=== PATIENT | female | born 1980 | race Caucasian/White ===

== ENCOUNTER 2016-12-06 11:45 | Inpatient (IN) | payer OTHER ==
[~2016-12-06] VITALS: Ht 157.5 cm; Wt 90.7 kg
[~2016-12-06 11:45] MED LIST: ATENOLOL50 M1 PO; AUGMENTIN 875-1 EACH PO; BENADRYL25 MG PO; GABAPENTIN400 M2 PO; HYDROCHLOROTHIA25 M1 PO; IBUPROFEN800 MG PO; KEFLEX500 M1 PO; NORVASC5 M1 PO; OMEPRAZOLE20 M2 PO; PERCOCET 5-3251 EACH PO; SIMVASTATIN20 M1 PO
--- NOTE | 2016-12-06 11:49 | NUR ---
PT STATES SHE IS HAVING LOWER GROIN AND BACK PAIN THAT HAS BEEN SHARP AND STABBING. PT REPORTS HAVING PAIN THAT SHOOTS UP HER BACK. PT STATES THE SKIN ON HER LEGS HAS FELT LIKE IT HAS BEEN ON FIRE AND WHEN SHE KNEELS DOWN IT FEELS LIKE HER SKIN CAN RIP APART. PT STATES SHE HAS BEEN VOMITING FOR THE PAST 5 DAYS AND HAS NOT BEEN ABLE TO KEEP ANYTHING DOWN.
--- NOTE | 2016-12-06 13:19 | ED GI/GU/ABDOMINAL COMPLAINT ---
History of Present Illness General Chief Complaint: Abdominal Pain/Flank Pain Stated Complaint: LOWER ABD PAIN Source: patient, old records Exam Limitations: no limitations Vital Signs & Intake/Output Vital Signs & Intake/Output Vital Signs Date Time Temp Pulse Resp B/P Pulse O2 O2 Flow FiO2 Ox Delivery Rate 12/06 1837 100/58 12/06 1741 98.6 96/58 12/06 1700 99.0 83 16 90/52 94 Room Air 12/06 1453 80 18 95/51 97 Room Air 12/06 1150 98.5 99 16 105/70 97 Room Air Allergies Coded Allergies: NO KNOWN ALLERGIES (01/15/16) Reconcile Medications Amlodipine (Norvasc 5MG Tab) 5 MG TAB 1 TAB PO DAILY HEART (Reported) Atenolol 50 MG TAB 1 TAB PO DAILY HEART (Reported) Gabapentin 400 MG CAP 3 CAP PO DAILY NEUROPATHY (Reported) Gabapentin 400 MG CAP 2 CAP PO AT BEDTIME NEUROPATHY (Reported) Hydrochlorothiazide (Hydrodiuril 25 MG Tab) 25 MG TAB 1 TAB PO DAILY WATER PILL (Reported) Omeprazole 20 MG ECC 1 CAP PO DAILY GI (Reported) Simvastatin 20 MG TAB 1 TAB PO DAILY CHOLESTEROL (Reported) Triage Note: PT STATES SHE IS HAVING LOWER GROIN AND BACK PAIN THAT HAS BEEN SHARP AND STABBING. PT REPORTS HAVING PAIN THAT SHOOTS UP HER BACK. PT STATES THE SKIN ON HER LEGS HAS FELT LIKE IT HAS BEEN ON FIRE AND WHEN SHE KNEELS DOWN IT FEELS LIKE HER SKIN CAN RIP APART. Triage Nurses Notes Reviewed? yes ? N Is pt currently ? No HPI: Patient presents with abdominal pain. Patient states that the pain first started in her bilateral lower quadrant a few weeks ago and has been steadily increasing. The pain is crampy in nature. There is no radiation. There are no aggravating or mitigating factors. For the past 2 days she has been having increasing pain in the right upper quadrant. The pain is sharp and stabbing in nature. The pain is steadily increasing to its current 10 out of 10. There is no radiation. Patient states that she has anorexia but does not notice any change in the pain after eating. There is nausea and she's had 1 episode of vomiting. There is no diarrhea. Patient denies any fevers or chills. Past History Travel History Traveled to [place] past 21 day No Medical History Any Pertinent Medical History? see below for history Neurological: NEUROPATHY -- BL LE EENT: MOLD/POLLEN ALLERGIES Cardiovascular: hypertension, hyperlipidemia Respiratory: NONE Gastrointestinal: GERD Hepatic: NONE Renal: NONE Musculoskeletal: NONE Psychiatric: NONE Endocrine: NONE Blood Disorders: NONE Cancer(s): NONE HUMAN RESOURCES BENEFITS ADMINISTRATOR/Reproductive: NONE History of MRSA: No History of VRE: No History of CDIFF: No Pneumonia Vaccine: 12/30/15 Tetanus Vaccine: 01/15/16 Surgical History Surgical History: none, N Psychosocial History Who do you live with Family Services at Home None What is your primary language Gabonese Tobacco Use: Current Daily Use Daily Tobacco Use Amount/Type: => 5 Cigarettes daily ETOH Use: occasional use Illicit Drug Use: denies illicit drug use Family History Family History, If Any: FATHER FH: heart disease MOTHER FH: diabetes mellitus FH: hyperlipidemia Hx Contributory? No Review of Systems Review of Systems Constitutional: Reports: no symptoms. EENTM: Reports: no symptoms. Respiratory: Reports: no symptoms. Cardiovascular: Reports: no symptoms. GI: Reports: see HPI, abdominal pain, diarrhea, nausea, vomiting. Genitourinary: Reports: no symptoms. Musculoskeletal: Reports: no symptoms. Skin: Reports: no symptoms. Neurological/Psychological: Reports: no symptoms. Hematologic/Endocrine: Reports: no symptoms. Immunologic/Allergic: Reports: no symptoms. All Other Systems: Reviewed and Negative Physical Exam Physical Exam General Appearance: well developed/nourished, alert, awake, moderate distress Head: atraumatic, normal appearance Eyes: Bilateral: PERRL, EOMI. Ears, Nose, Throat, Mouth: hearing grossly normal, moist mucous membrane Neck: normal inspection, supple, full range of motion Respiratory: normal breath sounds, chest non-tender, no respiratory distress, lungs clear Cardiovascular: regular rate/rhythm, normal peripheral pulses Gastrointestinal: normal bowel sounds, soft, HEPATOMEGALY AND RUQ TENDERNESS Back: normal inspection, normal range of motion Neurologic/Psych: no motor/sensory deficits, awake, alert, oriented x 3, normal mood/affect Skin: intact, normal color, warm/dry Core Measures ACS in differential dx? No Severe Sepsis Present: No Septic Shock Present: No Progress Differential Diagnosis: biliary colic, bowel obstruction, colon cancer, cholecystitis, diverticulitis, gastritis, hepatitis, hernia, ischemic bowel, inflamm bowel dis, peptic ulcer, PUD/GERD, SBO Plan of Care: Orders Procedure Date/time Status Regular Diet 12/07 B Active Saline Lock 12/07 1855 Active Misc Message 12/07 1855 Active ED Holding Orders 12/07 1855 Active Vital Signs 12/07 1855 Active Activity/Ambulation 12/07 1855 Active Code Status 12/07 1855 Active Admit to inpatient 12/06 185 Active PARTIAL THROMBOPLASTIN TIME 12/06 184 Active PROTHROMBIN TIME 12/06 1848 Active Add-on Test (ER Only) 12/06 1817 Active Add-on Test (ER Only) 12/06 1625 Active Add-on Test (ER Only) 12/06 1450 Active HEPATITIS PANEL 12/06 135 Active HUMAN BETA HCG SCREEN 12/06 135 Active ETHANOL 12/06 1356 Active LIPASE 12/06 1343 Active COMPREHENSIVE METABOLIC PANEL 12/06 1343 Active CBC WITHOUT DIFFERENTIAL 12/06 1343 Complete AMYLASE 12/06 1343 Active Current Medications Sig/Fátima Start time Last Medication Dose Stop Time Status Admin Sodium Chloride 1,000 ML .Q10H 12/06 1900 UNVr (Normal Saline 0.9%) Laboratory Tests 12/06/16 184: PT Pending, INR Pending, APTT Pending 12/06/16 1356: Anion Gap 11, Estimated GFR > 60, BUN/Creatinine Ratio 10.0, Glucose 115 H, Calcium 8.4, Total Bilirubin 2.6 H, AST 163 H, ALT 55 H, Alkaline Phosphatase 246 H, Total Protein 7.8, Albumin 3.0 L, Globulin 4.8 H, Albumin/Globulin Ratio 0.6 L, Amylase < 30 L, Lipase 119, Total Beta HCG NEGATIVE, CBC w Diff NO MAN DIFF REQ, RBC 4.69, MCV 101.1 H, MCH 34.3 H, RDW 12.4, MPV 9.3, Gran % 80.9 H, Lymphocytes % 13.5 L, Monocytes % 4.9, Eosinophils % 0.6, Basophils % 0.1, Absolute Granulocytes 9.7 H, Absolute Lymphocytes 1.6, Absolute Monocytes 0.6, Absolute Eosinophils 0.1, Absolute Basophils 0, PUBS MCHC 33.9, Hepatitis A IgM Ab Pending, Hep Bs Antigen Pending, Hep B Core IgM Ab Conf Pending, Hepatitis C Antibody Pending, Serum Alcohol < 10.0 Diagnostic Imaging: Viewed by Me: CT Scan, Ultrasound. Discussed w/RAD: CT Scan, Ultrasound. Radiology Impression: PATIENT: KRISTAL DERAS PRESENT AGE: 36 PATIENT ACCOUNT NO: [id number] : 78 LOCATION: [facility] ORDERING PHYSICIAN: PETEY FORD MD SERVICE DATE: 12/06/16 EXAM TYPE: CAT - CT ABD & PELVIS W IV CONTRAST EXAMINATION: CT ABDOMEN AND PELVIS WITH CONTRAST CLINICAL INFORMATION: Right lower quadrant pain. Evaluate for appendicitis. COMPARISON: CT abdomen and pelvis from 11/15/2010 TECHNIQUE: Multidetector volumetric imaging was performed of the abdomen and pelvis before and after the IV administration of 95 mL of Optiray 320 intravenous contrast. Sagittal and coronal reformatted images were obtained on the technologist's workstation. DLP: 886 mGy-cm FINDINGS: SENIOR ASSOCIATE: Compared to 11/15/2010, the patient has developed a larger, more obese body habitus LUNG BASES: Mild atelectasis in dependent aspect of each lower lobe. Also, there are a few scattered linear opacities of platelike atelectasis in each base. A trace amount of fluid is present in each pleural space. LIVER, GALLBLADDER, AND BILIARY TREE: There is a heterogeneous pattern of steatosis. The liver is enlarged with right hepatic lobe measuring 29 cm in length. If patient excessively uses alcohol, then this could represent severe alcohol-induced steatohepatitis. The portal and hepatic veins are patent. Gallbladder is physiologically distended and without evidence of radiopaque calculi. There is no intrahepatic or extrahepatic bile duct dilatation. PANCREAS: Unremarkable. SPLEEN: Unremarkable. ADRENAL GLANDS: Unremarkable. KIDNEYS AND URETERS: The kidneys are normal in size, shape, and attenuation. No hydronephrosis, hydroureter, or calculi seen. No perinephric stranding. BLADDER: Unremarkable. GASTROINTESTINAL TRACT: Stomach is unremarkable. Loops of bowel are normal in caliber. The appendix is normal. There is no evidence of acute inflammation or obstruction of the gastrointestinal tract. No pneumoperitoneum. Small amount of ascitic fluid is present within the abdomen and pelvis. ABDOMINAL WALL: There is mild edema within subcutaneous tissues of the abdominal wall, flanks and back. LYMPH NODES: There are mildly enlarged common hepatic/periportal lymph nodes, largest of these measuring 1.3 cm short axis dimension. These are likely reactive to the liver disease. Multiple lymph nodes are seen within the retroperitoneum, largest measuring 1 cm short axis dimension. Also, there are multiple mildly enlarged lymph nodes in the mesentery. VASCULAR: Abdominal aorta is normal in caliber and the celiac trunk, SMA, JACOB and renal arteries are widely patent. Inferior vena cava is unremarkable. PELVIC VISCERA: Contraceptive device is well-positioned within the endometrial cavity. The uterus and adnexa are unremarkable. OSSEOUS STRUCTURES: There are bilateral pars interarticularis defects of L5 with 0.4 cm grade 1 anterolisthesis of L5 on S1. No suspicious bone lesions. IMPRESSION: Hepatomegaly and severe, heterogeneous pattern of hepatic steatosis. Consider possibility of alcohol-induced steatohepatitis -- if in the right clinical context of excessive alcohol use history. Small volume of ascitic fluid is present in the abdomen and pelvis. The mild lymphadenopathy in the periportal region is likely reactive to liver disease. Multiple borderline enlarged lymph nodes are also seen within the mesentery and retroperitoneum. DICTATED BY: BAKARI AGUILERA MD DATE/TIME DICTATED:12/06/161554 DIRECTOR PROCESS IMPROVEMENT:MOLLY DATE/TIME TRANSCRIBED:12/06/161554 CONFIDENTIAL, DO NOT COPY WITHOUT APPROPRIATE AUTHORIZATION. <Electronically signed in Other Vendor System> SIGNED BY: BAKARI AGUILERA MD 12/06/16 1610, PATIENT: KRISTAL DERAS PRESENT AGE: 36 PATIENT ACCOUNT NO: [id number] : LOCATION: [facility] ORDERING PHYSICIAN: PETEY FORD MD SERVICE DATE: 12/06/16-1431 EXAM TYPE: US - US-LIMITED ABDOMEN EXAMINATION: US ABDOMEN LIMITED CLINICAL INFORMATION: Right upper quadrant pain. Increased LFTs. Rule out cholecystitis. COMPARISON: CT abdomen pelvis dated 12/06/2016 was reviewed. TECHNIQUE: Real-time imaging of the right upper quadrant abdominal viscera. FINDINGS: PANCREAS: The pancreas is obscured by gas and cannot be adequately evaluated. LIVER: The liver is enlarged. It demonstrates increased echogenicity. GALLBLADDER: The gallbladder is distended. There is mild gallbladder wall thickening, to 5 mm. During the examination the patient reported severe pain within the region of the gallbladder. COMMON BILE DUCT: Normal in caliber measuring 0.6 cm in diameter. RIGHT KIDNEY: The right kidney measures 10 cm in sagittal dimension. No gross hydronephrosis. FREE FLUID: There is perihepatic free fluid. IMPRESSION: This ultrasound examination is markedly limited secondary to patient's body habitus. The gallbladder is distended and there is minimal gallbladder wall thickening. Additionally, the patient reports severe pain within the region of the gallbladder. If there is a clinical concern for cholecystitis, nuclear medicine scan is recommended for further evaluation. The liver is markedly enlarged and heterogeneous in echotexture. DICTATED BY: SUPA VALDEZ MD DATE/TIME DICTATED:12/06/161639 DIRECTOR PROCESS IMPROVEMENT:MOLLY DATE/ TIME TRANSCRIBED:12/06/161639 CONFIDENTIAL, DO NOT COPY WITHOUT APPROPRIATE AUTHORIZATION. <Electronically signed in Other Vendor System> SIGNED BY: SUPA VALDEZ MD 12/06/16 0676 Initial ED EKG: none Comments: Patient has been seen by Dr. Downing from surgery. He is concerned with the way the liver looks on the CAT scan. Gastroenterology has been consulted and they will see her in the morning. Departure Departure Disposition: STILL A PATIENT Condition: Stable Clinical Impression Primary Impression: Hepatitis Secondary Impressions: Abdominal pain Qualifiers: Abdominal location: right upper quadrant Qualified Code: R10.11 - Right upper quadrant pain Referrals: TIFFANIE SUMNER,IONA (PCP/Family) Departure Forms: Customer Survey General Discharge Information Admission Note Spoke With: VERÓNICA AYOUB MD Documentation of Exam: Documentation of any treatments & extenuating circumstances including Concerns Regarding Discharge (functional status, medication knowledge or non-compliance, living conditions, etc.) that warrant an admission rather than observation: [IV fluids, IV pain control, follow CIWA scores, gastroenterology consultation] Critical Care Note Critical Care Note Critical Care Time: mins: (45 MIN)
--- NOTE | 2016-12-06 13:19 | NUR ---
PT TO DANIEL Tam MEDICAL STUDENT AT BEDSIDE TO REJI HERNANDEZ
--- NOTE | 2016-12-06 13:58 | NUR ---
PT LABS SENT
[2016-12-06 14:15] LABS: ABSOLUTE BASOPHIL COUNT 0 /CUMM (0.0-0.2); ABSOLUTE EOSINOPHIL COUNT 0.1 /CUMM (0.0-0.7); ABSOLUTE GRANULOCYTE CT 9.7 /CUMM (1.4-6.5); ABSOLUTE LYMPH COUNT 1.6 /CUMM (1.2-3.4); ABSOLUTE MONOCYTE COUNT 0.6 /CUMM (0.10-0.60); BASOPHIL % 0.1 % (0.0-2.0); EOSINOPHIL % 0.6 % (0-5); GRANULOCYTE % 80.9 % (42.2-75.2); HEMATOCRIT 47.5 % (37-47); MEAN CORPUSCULAR HGB 34.3 PG (27.0-31.0); MEAN CORPUSCULAR HGB CONC 33.9 G/DL (33.0-37.0); MEAN CORPUSCULAR VOLUME 101.1 FL (81.0-99.0); MEAN PLATELET VOLUME 9.3 FL (7.4-10.4); PLATELET COUNT 167 /CUMM (130-400); RBC DISTRIBUTION WIDTH 12.4 % (11.5-14.5); RED BLOOD CELL CT 4.69 /CUMM (4.20-5.40); WHITE BLOOD CELL COUNT 11.9 /CUMM (4.8-10.8)
--- NOTE | 2016-12-06 16:10 | CT SCAN REPORT ---
EXAMINATION: CT ABDOMEN AND PELVIS WITH CONTRAST CLINICAL INFORMATION: Right lower quadrant pain. Evaluate for appendicitis. COMPARISON: CT abdomen and pelvis from 11/15/2010 TECHNIQUE: Multidetector volumetric imaging was performed of the abdomen and pelvis before and after the IV administration of 95 mL of Optiray 320 intravenous contrast. Sagittal and coronal reformatted images were obtained on the technologist's workstation. DLP: 886 mGy-cm FINDINGS: HAY SORTER: Compared to 11/15/2010, the patient has developed a larger, more obese body habitus LUNG BASES: Mild atelectasis in dependent aspect of each lower lobe. Also, there are a few scattered linear opacities of platelike atelectasis in each base. A trace amount of fluid is present in each pleural space. LIVER, GALLBLADDER, AND BILIARY TREE: There is a heterogeneous pattern of steatosis. The liver is enlarged with right hepatic lobe measuring 29 cm in length. If patient excessively uses alcohol, then this could represent severe alcohol-induced steatohepatitis. The portal and hepatic veins are patent. Gallbladder is physiologically distended and without evidence of radiopaque calculi. There is no intrahepatic or extrahepatic bile duct dilatation. PANCREAS: Unremarkable. SPLEEN: Unremarkable. ADRENAL GLANDS: Unremarkable. KIDNEYS AND URETERS: The kidneys are normal in size, shape, and attenuation. No hydronephrosis, hydroureter, or calculi seen. No perinephric stranding. BLADDER: Unremarkable. GASTROINTESTINAL TRACT: Stomach is unremarkable. Loops of bowel are normal in caliber. The appendix is normal. There is no evidence of acute inflammation or obstruction of the gastrointestinal tract. No pneumoperitoneum. Small amount of ascitic fluid is present within the abdomen and pelvis. ABDOMINAL WALL: There is mild edema within subcutaneous tissues of the abdominal wall, flanks and back. LYMPH NODES: There are mildly enlarged common hepatic/periportal lymph nodes, largest of these measuring 1.3 cm short axis dimension. These are likely reactive to the liver disease. Multiple lymph nodes are seen within the retroperitoneum, largest measuring 1 cm short axis dimension. Also, there are multiple mildly enlarged lymph nodes in the mesentery. VASCULAR: Abdominal aorta is normal in caliber and the celiac trunk, SMA, JACOB and renal arteries are widely patent. Inferior vena cava is unremarkable. PELVIC VISCERA: Contraceptive device is well-positioned within the endometrial cavity. The uterus and adnexa are unremarkable. OSSEOUS STRUCTURES: There are bilateral pars interarticularis defects of L5 with 0.4 cm grade 1 anterolisthesis of L5 on S1. No suspicious bone lesions. IMPRESSION: Hepatomegaly and severe, heterogeneous pattern of hepatic steatosis. Consider possibility of alcohol-induced steatohepatitis -- if in the right clinical context of excessive alcohol use history. Small volume of ascitic fluid is present in the abdomen and pelvis. The mild lymphadenopathy in the periportal region is likely reactive to liver disease. Multiple borderline enlarged lymph nodes are also seen within the mesentery and retroperitoneum.
--- NOTE | 2016-12-06 16:51 | ULTRASOUND REPORT ---
EXAMINATION: US ABDOMEN LIMITED CLINICAL INFORMATION: Right upper quadrant pain. Increased LFTs. Rule out cholecystitis. COMPARISON: CT abdomen pelvis dated 12/06/2016 was reviewed. TECHNIQUE: Real-time imaging of the right upper quadrant abdominal viscera. FINDINGS: PANCREAS: The pancreas is obscured by gas and cannot be adequately evaluated. LIVER: The liver is enlarged. It demonstrates increased echogenicity. GALLBLADDER: The gallbladder is distended. There is mild gallbladder wall thickening, to 5 mm. During the examination the patient reported severe pain within the region of the gallbladder. COMMON BILE DUCT: Normal in caliber measuring 0.6 cm in diameter. RIGHT KIDNEY: The right kidney measures 10 cm in sagittal dimension. No gross hydronephrosis. FREE FLUID: There is perihepatic free fluid. IMPRESSION: This ultrasound examination is markedly limited secondary to patient's body habitus. The gallbladder is distended and there is minimal gallbladder wall thickening. Additionally, the patient reports severe pain within the region of the gallbladder. If there is a clinical concern for cholecystitis, nuclear medicine scan is recommended for further evaluation. The liver is markedly enlarged and heterogeneous in echotexture.
--- NOTE | 2016-12-06 18:37 | NUR ---
LAB REQUESTING A BLUE TOP
--- NOTE | 2016-12-06 18:49 | NUR ---
BLUE, ELIZONDO AND PURPLE TOP DRAWN AND SENT TO THE LAB BY THIS [facility]
[2016-12-06 19:11] LABS: PTT 37 SEC (25-37)
--- NOTE | 2016-12-06 20:01 | NUR ---
Emergency Dept UC Admit Note: To be admitted to [facility] by DR AYOUB with ABDOMINAL PAIN as the diagnosis, to [facility] location. Nursing Personal Care Service Provider and admitting notified 12/06/16 at 1906 PT WILL GO TO ROOM [id number]
--- NOTE | 2016-12-06 20:05 | History & Physical ---
JOAQUIN USMNER,NIKKI 12/06/16 2004: General Information and HPI History of Present Illness: Ms. Wallace is a 36-year-old lady with a PMH significant for HTN, HLD, neuropathy and GERD, last admitted for cellulitis from a dog bite in Dec [address] [facility], presents with 2 days of worsening RUQ pain associated with postprandial emesis and diarrhea. Patient reports the abdominal pain began 2 months ago but it has gotten significantly worse for the past 2 days. Also she has been unable to tolerate any food despite having a good appetite. Patient has been throwing up the food that she ate, both solid and liquid. In addition she has had diarrhea since her last admission for cellulitis with some color changes in the stool occassionally. For the past 2 days she has had diarrhea with yellow /greenish stools. Denies any pain/difficulty with swallowing. She did not take any medications for pain. Currently her abdominal pain is about 8 out of 10, constant, sharp, located predominantly in the RUQ radiating to the RLQ. She also endorses some pain in the bilateral lower quadrants but it is stable and under control. Patient had some chills at home but denies any fever, headache, dizziness, chest pain, palpitations, shortness of breath. She identifies herself as an occassional social drinker (1 glass of wine every 1 -2 weeks in average). She is a current smoker (20+ years, about 2 cigarretts a day). Denies any illicit drug use. PCP - Dr. Polanco Full code. Allergies/Medications Allergies: Coded Allergies: NO KNOWN ALLERGIES (01/15/16) Home Med list Amlodipine (Norvasc 5MG Tab) 5 MG TAB 1 TAB PO DAILY HEART (Reported) Atenolol 50 MG TAB 1 TAB PO DAILY HEART (Reported) Gabapentin 400 MG CAP 3 CAP PO DAILY NEUROPATHY (Reported) Gabapentin 400 MG CAP 2 CAP PO AT BEDTIME NEUROPATHY (Reported) Hydrochlorothiazide (Hydrodiuril 25 MG Tab) 25 MG TAB 1 TAB PO DAILY WATER PILL (Reported) Omeprazole 20 MG ECC 1 CAP PO DAILY GI (Reported) Simvastatin 20 MG TAB 1 TAB PO DAILY CHOLESTEROL (Reported) Past History Travel History Traveled to [place] past 21 day No Medical History Neurological: NEUROPATHY -- BL LE EENT: MOLD/POLLEN ALLERGIES Cardiovascular: hypertension, hyperlipidemia Respiratory: NONE Gastrointestinal: GERD Hepatic: NONE Renal: NONE Musculoskeletal: NONE Psychiatric: NONE Endocrine: NONE Blood Disorders: NONE Cancer(s): NONE CURTAIN DRIER/Reproductive: NONE History of MRSA: No History of VRE: No History of CDIFF: No Pneumonia Vaccine: 12/30/15 Tetanus Vaccine: 01/15/16 Surgical History Surgical History: none, N Past Family/Social History Family History Relations & Conditions if any FATHER FH: heart disease MOTHER FH: diabetes mellitus FH: hyperlipidemia Psychosocial History Services at Home: None ETOH Use: occasional use Illicit Drug Use: denies illicit drug use Review of Systems Review of Systems Constitutional: Reports: see HPI. Exam & Diagnostic Data Last 24 Hrs of Vital Signs/I&O Vital Signs Date Time Temp Pulse Resp B/P Pulse O2 O2 Flow FiO2 Ox Delivery Rate 12/06 2053 98.2 96 20 108/78 95 Room Air 12/06 2025 98.5 90 16 114/73 97 Room Air 12/06 1837 100/58 12/06 1741 98.6 96/58 12/06 1700 99.0 83 16 90/52 94 Room Air 12/06 1453 80 18 95/51 97 Room Air 12/06 1150 98.5 99 16 105/70 97 Room Air Intake & Output 12/06 1600 12/06 0800 12/06 0000 Intake Total 1000 Output Total Balance 1000 Intake, IV 1000 Patient 90.718 kg Weight Physical Exam General Appearance Alert, Oriented X3, Cooperative, No Acute Distress Skin No Rashes, No Breakdown, No Significant Lesion HEENT Atraumatic, PERRLA, EOMI, Mucous Membr. moist/pink Neck Supple, No JVD, +2 Carotid Pulse wo Bruit, No LAD Cardiovascular Regular Rate, Normal S1, Normal S2, No Murmurs, Gallops, Rubs Lungs Clear to Auscultation, Normal Air Movement Abdomen Soft, Hypoactive BS, TTP in RUQ and RLQ Neurological Normal Gait, Normal Speech, Strength at 5/5 X4 Ext, Normal Tone, Sensation Intact, Cranial Nerves 3-12 NL Extremities No Clubbing, No Cyanosis, No Edema, Normal Pulses, No Tenderness/ Swelling Vascular Normal Pulses, Pulses Symmetrical Last 24 Hrs of Labs/Venancio: Laboratory Tests 12/06/16 1848: PT 19.0 H, INR 1.82 H, APTT 37 12/06/16 1356: Anion Gap 11, Estimated GFR > 60, BUN/Creatinine Ratio 10.0, Glucose 115 H, Calcium 8.4, Total Bilirubin 2.6 H, Direct Bilirubin 1.5 H, AST 163 H, ALT 55 H, Alkaline Phosphatase 246 H, Total Protein 7.8, Albumin 3.0 L, Globulin 4.8 H, Albumin/Globulin Ratio 0.6 L, Amylase < 30 L, Lipase 119, Vitamin B12 Pending, TSH Pending, Total Beta HCG NEGATIVE, CBC w Diff NO MAN DIFF REQ, RBC 4.69, MCV 101.1 H, MCH 34.3 H, RDW 12.4, MPV 9.3, Gran % 80.9 H, Lymphocytes % 13.5 L, Monocytes % 4.9, Eosinophils % 0.6, Basophils % 0.1, Absolute Granulocytes 9.7 H, Absolute Lymphocytes 1.6, Absolute Monocytes 0.6, Absolute Eosinophils 0.1, Absolute Basophils 0, PUBS MCHC 33.9, Hepatitis A IgM Ab Pending, Hep Bs Antigen Pending, Hep B Core IgM Ab Conf Pending, Hepatitis C Antibody Pending, Salicylates Pending, Acetaminophen Pending, Serum Alcohol < 10.0 Assessment/Plan Assessment: Ms. Wallace is a 36-year-old lady with a PMH significant for HTN, HLD, neuropathy and GERD, last admitted for cellulitis from a dog bite in Dec [address] [facility], presents with 2 days of worsening RUQ pain associated with postprandial emesis and diarrhea, concerning for biliary disease. # RUQ pain with transaminitis Her abdominal pain in the setting of elevated LFTs with total bili is likely due to a biliary disease, most likely choledocholithiasis vs. cholecytitis with a component of possible alcoholic steatohepatitis. Patient has no signs of SIRS however. Ultrasound shows enlarged liver, distended gallbladder with minimal gallbladder wall thickening. Additionally, the patient reports severe pain within the region of the gallbladder. * Admit to general medicine service * Check hepaitits panel, TFTs * Follow Utox screening with aspirin/Tylenol level * Recheck LFTs in the morning * GI consulted, follow recs * Surgery consulted, follow recs - recommended no surgical intervention at the moment * Consider steroid (Maddrey's risk is 39 points) * IV hydration * Adequate pain control * Avoid hepatotoxins # Hypokalemia K on admisison is low at 3.0. * Replete and recheck BEP tomorrow morning # HTN * Resume Norvasc, HCTZ and atenolol at home doses # HLD * Resume statin at home dose # GERD * Resume omeprazole # Diet - full liquid # Moderate pain pathway # DVTppx - Lovenox # Full code. As Ranked By This Provider Problem List: 1. Hyperlipidemia 2. Abdominal pain Qualifiers Abdominal location: right upper quadrant Qualified Code: R10.11 - Right upper quadrant pain 3. Hepatitis Core Measures/Miscellaneous Acute Coronary Syndrome ACS Diagnosis: No Cerebrovascular Accident CVA/TIA Diagnosis: No Congestive Heart Failure CHF Diagnosis: No Venous Thromboembolism VTE Risk Factors: Age > 40 No [facility] VTE prophylaxis d/t: No contraindications No VTE Pharm Prophylaxis d/t: No contraindications VTE Diagnosis: No VTE Type: NONE VTE Confirmed by (Test): NONE Severe Sepsis Severe Sepsis Present: No Septic Shock Septic Shock Present: No Miscellaneous Documentation Attending Case Discussed With: [facility] Primary Care Physician: TIFFANIE SUMNER,[facility] Patient sees these Specialists PCP Level of Patient Care: General Medicine [facility] 12/06/16 2103: Attending MD Review Statement Attending Statement Attending MD Statement: examined this patient, discuss w/resident/PA/CLIENT CARE MANAGER, agreed w/resident/PA/CLIENT CARE MANAGER Attending Assessment/Plan: 36 yo morbidly obese F smoker, with h/o HTN, HLD, GERD, neuropathy, is here for evaluation of abdominal pain b/l lower quadrant crampy painthat started 2 months ago, but for the past 1 week she now has noticed right upper quadrant stabbing pain associated with nausea, vomiting, chills and early satiety. Since her last discharge in January 2016 when she was treated with antibiotics for dog bite cellulitis, patient reports having chronic diarrhea off and on (almost every day, very few formed stools), [id number] stools, occasional blood, never been worked up for the same, no colonoscopy or EGD. Denies dysphagia, odynophagia or heartburn. Reports erythematous skin changes to bilateral lower extremity anterior aspect of shins but not tender. Two days ago, she had severe burning pain in her left lower extremity that resolved on its own ?etiology. No travel or sick contacts. She has smoked 'pod' as a teenager but nothing as of now. She was a binge drinker in her teenage years (16 yrs) for about 6 8 months, but after that she reports only occasional alcohol use (once every 2 weeks few glasses of wine). Denies IV drug abuse or previous blood transfusions. She has been vaccinated for Hep B. 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 For the past 2 weeks, she has been taking Ibuprofen (3 tabs of 200 mg ~ 600 mg) almost everyday for her headache. She denies Tylenol use. No other new meds. Family history: Brother has ?liver issues (diagnosed 10-12 yrs ago), but patient not sure about this. Home meds include amlodipine, atenolol, HCTZ, simvastatin, gabapentin and prilosec. Vitals: Tmax 99, HR 90's, BP 105/70 --> 90/52 --> 114/73 --> 102/62, sats 95% RA. Exam: AAO, no lymphadenopathy, no icterus or pallor, dry mucous membranes, no stigmata of cirrhosis or liver failure. Neck supple, Chest b/l clear, Heart S1S2 regular, Abd soft, distended, RUQ tenderness, hepatomegaly (about 3 fingers below rib cage), no splenomegaly, Neuro grossly intact. LE: B/l anterior tovar nontender erythematous patches, trace ankle edema. Peripheral pulses well felt. Labs: WBC 11.9, H/H 16.1/47.5, macrocytosis, INR 1.82, PT 19, K 3.0, bicarb 32, glucose 115, Ca 8.4, T. Bili 2.6, D. Bili 1.5, AST 163, ALT 55, Alk phos 246, Albumin 3.0, globulin 4.8, amylase/lipase neg. Salicylate/ tylenol levels neg. Alcohol < 10. CT abd/pelvis: hepatomegaly, severe heterogeneous pattern of steatohepatitis. Small volume of ascites, mild lymphadenopathy likely reactive. Multiple borderline enlarged LN within mesentery and RP. Abd USG: GB distended, minimal GB wall thickening, liver enlarged with increased echogenecity. 1. Acute liver injury with abnormal synthetic function, with a cholestatic pattern. AST:ALT > 2:1, however patient denies excessive alcohol use, ?alcoholic hepatitis. TORRES and drug induced (ibuprofen) induced liver injury is a possibility. No signs of sepsis, afebrile and no leukocytosis. She was hypotensive in the setting of chronic diarrhea, but her LFTs are not markedly elevated to suggest shock liver/ ischemic hepatitis. Acute viral hepatitis again numbers are not too bad. The constellation of chronic diarrhea, with elevated liver enzymes of cholestatic pattern and erythematous skin changes makes me think of inflammatory bowel disease with an extraintestinal manifestation ?PSC. Lastly, her GB appears distended with mininmal GB wall thickening cholecystitis. CT did not reveal any intra-or extra-hepatic biliary dilatation or cholelithiasis seems less likely. Malignancy seems less likely. GM admit, check urine tox screen, GGT, vit D, LDH, HIV, hepatitis panel, TSH, free T4, lipid panel, CPK. Check AM cortisol level to rule out adrenal insufficiency. Consider IAIN, anti-smooth muscle Ab, IgG to assess for autoimmune hepatitis. Continue IV fluids, anti-emetics and supportive care. Clear liquid diet. Pain management with dilaudid and tramadol. Avoid NSAIDS or hepatotoxic drugs. Hold statin. GI consult in AM. Surgery evaluated patient in ER (did not leave a note), but they do not think that it is a primary biliary/GB issue. Consider MRCP and ?HIDA scan to assess for cholecystitis. 2. Hypokalemia, metabolic alkalosis in the setting of vomiting. Replete electrolytes, IV hydration, monitor K levels. 3. Hypotensive, hemeconcentrated in the setting of chronic diarrhea. Continue IVF, hold anti-hypertensives (amlodipine, atenolol, HCTZ). DVT ppx Lovenox. Full code. ZORAIDA GAITAN 12/06/16 2201: Resident Review Statement Resident Statement: examined this patient, discussed with help desk internship, agreed with help desk internship Other Findings: Patient is a 28-year-old woman with a past medical history significant for hypertension, hyperlipidemia, peripheral neuropathy, GERD, history of cellulitis from a dog bite in Dec [address] [facility] presented to the ED for the evaluation of right upper quadrant tenderness. Patient reports that she has been having lower abdominal discomfort for almost 2 months but she has been having right upper quadrant tenderness with the last couple of days. Reports pain as sharp and constant, without any radiation associated with postprandial vomiting without any blood or bile. Her appetite has been stable despite of vomiting and nausea. Also complains of diarrhea with yellow/greenish stools without any alternating constipation. Denies any trouble swallowing. Patient denies any recent travels/sick contacts. Reports fever without any chills. Denies any chest is comfortable breathing no urinary symptoms. Patient denies any heavy alcohol abuse.However hx of binge drinking as a teen, now drinks occassionally. Still smokes approximately crit today denies any illicit drug use. While on admission the patient 99.0, pulse 83, respiratory rate 16, blood pressure 90/50 on room air. General Appearance: Alert and oriented 3 , mild to moderate distress Skin: Grossly normal. HEENT: PEERLA Neck: Supple, No JVD Cardiovascular: Regular Rate, Normal S1, Normal S2, No Murmurs Lungs: Lungs clear to auscultation bilaterally Abdomen: Normal Bowel Sounds,right upper quadrant tenderness since without any rebound. Positive Armendariz's sign. Neurological: Neuro exam intact grossly Extremities: No Clubbing, No Cyanosis, No Edema. Vascular: Normal Pulses . Pertinent labs: Early leukocytosis 11.9 without any bandemia, hypokalemia potassium 3, elevated total bili: 2.6 with direct 1.5 AST 163 with ALT of 55 ALP :246 INR 1.8 to Abdominal ultrasound: gall bladder is distended and there is minimal gallbladder wall thickening. Additionally, the patient reports severe pain within the region of the gallbladder. If there is a clinical concern for cholecystitis. Abdominal CAT scan:Hepatomegaly and severe, heterogeneous pattern of hepatic steatosis. Consider possibility of alcohol-induced steatohepatitis. Assessment and plan: 1. Severe right upper quadrant pain with positive Armendariz's sign: (possible underlying biliary disease most likely choledocholithiasis vs. cholecytitis with evidence of alcoholic steatohepatitis on the CAT scan and transaminitis (AST > ALT )(possible underlying alcohol abuse calculated Madey discriminant function score 39) * We'll admit the patient to the [facility] floor * We will check hepatitis panel and HIV. Urine toxicology's including aspirin and Tylenol levels.We'll check a TSH and B12 levels. * Trend LFTs. * Moderate to severe pain controlled with IV Dilaudid * Zofran as needed for nausea and vomiting * GI has been consulted to follow the recommendations. Surgery has been consulted and recommended no surgical interventions at this time. * Patient will probably benefit from HIDA scan for further evaluation of choledocholithiasis vs. cholecytitis. * Promote oral hydration. * Clear liquid diet for now * Watch for any hemodynamic stability. 2.Hypokalemia K on admisison is low at 3.0. * Replete and recheck BEP tomorrow morning 3. History of hypertension and lipidemia: * Home medications include amlodipine, atenolol and hydrochlorothiazide have been resumed * Hold statins 4. History of peripheral neuropathy: * Continue home dose of gabapentin 5. History of GERD * Continue home dose of omeprazole Moderate to severe pain pathway pathway with IV Dilaudid and oxycodone DVT prophylaxis subcutaneous Lovenox Patient is full code
--- NOTE | 2016-12-06 20:26 | NUR ---
HOUSE STAFF AT BEDSIDE
--- NOTE | 2016-12-06 20:35 | NUR ---
PT REFUSING TO CHANGE INTO HOSPITAL GOWN. STATES SHE IS NOT CHANGING INTO ONE ONCE SHE IS IN HER INPATIENT ROOM EITHER
[2016-12-06 20:54] VITALS: BP 108/78
--- NOTE | 2016-12-06 22:45 | NUR ---
NURSING NOTE; PT ADMITTED TO ROOM FROM THE ER AT 2044. PT AMBULATED TO BED WITH STEADY GAIT. PT ALERT AND OREINTEDX3, OOB INDEPENDENT, VSS, DENIES CP, +PULSES, ON RA, DENIES SOB, LCTA, PT SKIN INTACT, C/O ABDOMINAL TENDERNESS AND PAIN IN RLQ. PT MEDICATED WITH PRN PAIN MED. PT ORIENTED TO ROOM AND CALL [facility]. WILL CONTINUE TO MONITOR.
[2016-12-06 22:49] VITALS: BP 102/62
--- NOTE | 2016-12-07 01:49 | Admission Certification ---
Admission Certification Certification Statement - As attending physician, I certify that at the time of - admission, based on clinical presentation, severity of - symptoms, need for further diagnostic testing and - therapeutic interventions, and risk of adverse outcomes - without in-hospital treatment, in my clinical assessment, - this patient requires an acute hospital stay for a minimum - of two nights or longer. I have also considered psychsocial - factors such as support system, advanced age, financial - issues, cognitive issues, and failed out-patient treatments, - past re-admission history, safety of patient, and lack of - compliance as applicable. Specific rationale supporting this admission is: Abnormal liver function tests, with associated hepatomegaly and GI symptoms that needs further evaluation.
[2016-12-07 06:41] VITALS: BP 110/78
--- NOTE | 2016-12-07 07:28 | PN- Housestaff ---
EDIN SUM[facility] 12/07/16 0727: Subjective Follow-up For: Abdominal pain Nausea vomiting Subjective: I saw and examined the patient at bedside this am, she is alert and oriented in no distress, reports she vomited once since last night, has been nauseous but was able to keep down solid food last night, however after switching to clear liquids reports more nausea and vomited once. Reports pain in the abdomen more prominent on the right lower side, denies chills, denies changes in the color of skin, reports the redness on the skin in the umbilical area is a result of itchiness and has been chronic. Review of Systems Constitutional: Denies: chills, fever, weakness. EENTM: Reports: no symptoms. Cardiovascular: Denies: chest pain, palpitations. Respiratory: Denies: cough, short of breath. Gastrointestinal: Reports: abdominal pain, diarrhea, nausea, vomiting. Denies: constipation, distention. Genitourinary: Reports: no symptoms. Musculoskeletal: Reports: no symptoms. Skin: Reports: no symptoms. Neurological/Psychological: Reports: no symptoms. Hematologic/Endocrine: Reports: no symptoms. Immunologic/Allergic: Reports: no symptoms. Objective Last 24 Hrs of Vital Signs/I&O Vital Signs Date Time Temp Pulse Resp B/P Pulse O2 O2 Flow FiO2 Ox Delivery Rate 12/07 0641 98.4 103 20 110/78 90 Room Air 12/06 2249 98.6 93 19 102/62 93 Room Air 12/06 2241 96 108/78 12/06 2054 98.2 96 20 108/78 95 Room Air 12/06 2026 98.5 90 16 114/73 97 Room Air 12/06 1837 100/58 12/06 1741 98.6 96/58 12/06 1700 99.0 83 16 90/52 94 Room Air 12/06 1453 80 18 95/51 97 Room Air Intake & Output 12/07 1600 12/07 0800 12/07 0000 Intake Total 1030 600 Output Total 750 Balance 280 600 Intake, IV 810 200 Intake, Oral 220 400 Output, Urine 750 Patient 90.718 kg Weight Physical Exam General Appearance: Alert, Oriented X3, Cooperative, No Acute Distress Skin: No Significant Lesion, small area of erythema aroud the umbilicus, with excoriations due to scratching and itchiness. HEENT: Atraumatic, EOMI, Mucous Membr. moist/pink Neck: No JVD Cardiovascular: Regular Rate, Normal S1, Normal S2, No Murmurs Lungs: Normal Air Movement Abdomen: Normal Bowel Sounds, Soft, increased hepatic span 10-12 cm below the lower rib, tenderness on thew RLQ RUQ, hypofgastric and LLQ, no rebound tenderness Neurological: Normal Speech, Normal Tone Extremities: No Edema, Normal Pulses Vascular: Pulses Symmetrical Current Medications: Current Medications Sig/Fátima Start time Last Medication Dose Route Stop Time Status Admin Amlodipine Besylate 5 MG DAILY 12/07 2119 DC 12/06 PO 2241 Atenolol 50 MG DAILY 12/07 1000 CAN PO Atorvastatin Calcium 10 MG 1700 12/06 2129 DC PO Dextrose/Sodium 1,000 ML Q10H 12/07 944 AC 12/07 Chloride IV 0951 Enoxaparin Sodium 40 MG DAILY 12/07 1000 AC 12/07 SC 0916 Gabapentin 1,200 MG DAILY 12/07 1000 AC 12/07 PO 0916 Gabapentin 800 MG AT BEDTIME 12/06 220 AC 12/06 PO 2348 Hydrochlorothiazide 25 MG DAILY 12/07 1000 CAN PO Hydromorphone HCl 1 MG Q4P PRN 12/06 2244 AC 12/07 IV 0951 Hydromorphone HCl 0.5 MG Q4P PRN 12/06 2115 DC 12/06 IV 2200 Ibuprofen 600 MG Q6P PRN 12/06 2129 DC PO Influenza Virus 0.5 ML ONCE ONE 12/06 2199 DC 12/06 Vaccine IM 12/06 2200 2348 Ketorolac 30 MG ONCE ONE 12/06 1415 DC 12/06 Tromethamine IV 12/06 1416 1408 Ketorolac 0 .STK-MED ONE 12/06 1407 DC Tromethamine .ROUTE Lorazepam 1 MG Q4P PRN 12/07 0845 AC 12/07 IV 1040 Morphine Sulfate 0 .STK-MED ONE 12/06 1746 DC .ROUTE Morphine Sulfate 4 MG ONCE ONE 12/06 1700 DC 12/06 IV 12/06 1701 1748 Omeprazole 20 MG DAILY 12/07 1000 AC 12/07 PO 0915 Ondansetron HCl 4 MG Q8P PRN 12/06 2245 AC 12/07 PO 0917 Ondansetron HCl 4 MG ONCE ONE 12/06 1415 DC 12/06 IV 12/06 1416 1408 Ondansetron HCl 0 .STK-MED ONE 12/06 1407 DC .ROUTE Oxycodone HCl 5 MG Q6P PRN 12/06 2130 AC PO Patient Medication 1 UNIT ONE NR 12/07 0945 AC Teaching ED 12/07 1545 Potassium Chloride 40 MEQ ONCE ONE 12/07 0930 CAN PO 12/07 0931 Potassium Chloride 40 MEQ BID 12/06 2230 AC 12/07 PO 0916 Sodium Chloride 1,000 ML .Q10H 12/06 1900 DC 12/07 IV 0543 Sodium Chloride 1,000 ML BOLUS ONE 12/06 1700 DC 12/06 IV 12/06 1759 1709 Sodium Chloride 1,000 ML BOLUS ONE 12/06 1415 DC 12/06 IV 12/06 1514 1408 Tramadol HCl 50 MG Q6 PRN 12/06 2245 AC 12/07 PO 0915 Last 24 Hrs of Lab/Venancio Results Last 24 Hrs of Labs/Mics: Laboratory Tests 12/07/16 0845: Total Bilirubin 1.8 H, Direct Bilirubin 1.1 H, AST 114 H, ALT 48, Alkaline Phosphatase 194 H, Total Protein 6.8, Albumin 2.5 L 12/07/16 0845: Total Bilirubin Cancelled, Direct Bilirubin Cancelled, AST Cancelled, ALT Cancelled, Alkaline Phosphatase Cancelled, Total Protein Cancelled, Albumin Cancelled, PT 19.4 H, INR 1.86 H 12/07/16 0615: Anion Gap 8, Estimated GFR > 60, BUN/Creatinine Ratio 11.4, Phosphorus 3.5, Magnesium 1.7, GGT 445 H, Lactate Dehydrogenase 627 H, Creatine Kinase 55, Triglycerides 135, Cholesterol 100, LDL Cholesterol, Calc 58 L, HDL Cholesterol 15 L, Cholesterol/HDL Ratio 7 H, 25-OH Vitamin D Total 8.2 L, Free T4 2.16, Cortisol AM Sample 10.3, CBC w Diff NO MAN DIFF REQ, RBC 4.12 L, MCV 102.6 H, MCH 34.0 H, RDW 12.8, MPV 9.6, Gran % 78.6 H, Lymphocytes % 12.9 L, Monocytes % 7.0, Eosinophils % 1.1, Basophils % 0.4, Absolute Granulocytes 10.6 H, Absolute Lymphocytes 1.7, Absolute Monocytes 1.0 H, Absolute Eosinophils 0.2, Absolute Basophils 0.1, PUBS MCHC 33.2, HIV 1&2 Ab Western Blot NONREACTIVE 12/07/16 0200: Urine Opiates Screen > 4000.00 H, Methadone Screen < 40, Barbiturate Screen < 60, Ur Phencyclidine Scrn < 6.00, Amphetamines Screen < 100, U Benzodiazepines Scrn < 85, Urine Cocaine Screen < 50, Urine Cannabis Screen 6.40, Urine Color ORANG H, Urine Clarity HAZY H, Urine pH 7.0, Ur Specific [place] <= 1.005, Urine Protein 30 H, Urine Ketones TRACE H, Urine Nitrite NEG, Urine Bilirubin POS@ICTO H, Urine Urobilinogen 2.0 H, Ur Leukocyte Esterase NEG, Ur Microscopic SEDIMENT EXAMINED, Urine RBC RARE, Urine WBC 1-3 H, Ur Epithelial Cells FEW, Urine Crystals TALC, Urine Mucus FEW, Urine Hemoglobin NEG, Urine Glucose NEG 12/06/16 1848: PT 19.0 H, INR 1.82 H, APTT 37 12/06/16 1356: Anion Gap 11, Estimated GFR > 60, BUN/Creatinine Ratio 10.0, Glucose 115 H, Calcium 8.4, Total Bilirubin 2.6 H, Direct Bilirubin 1.5 H, AST 163 H, ALT 55 H, Alkaline Phosphatase 246 H, Total Protein 7.8, Albumin 3.0 L, Globulin 4.8 H, Albumin/Globulin Ratio 0.6 L, Amylase < 30 L, Lipase 119, Vitamin B12 > 1000 H, TSH 5.320 H, Total Beta HCG NEGATIVE, CBC w Diff NO MAN DIFF REQ, RBC 4.69, MCV 101.1 H, MCH 34.3 H, RDW 12.4, MPV 9.3, Gran % 80.9 H, Lymphocytes % 13.5 L, Monocytes % 4.9, Eosinophils % 0.6, Basophils % 0.1, Absolute Granulocytes 9.7 H, Absolute Lymphocytes 1.6, Absolute Monocytes 0.6, Absolute Eosinophils 0.1, Absolute Basophils 0, PUBS MCHC 33.9, Hepatitis A IgM Ab NONREACTIVE, Hep Bs Antigen NONREACTIVE, Hep B Core IgM Ab Conf NONREACTIVE, Hepatitis C Antibody NONREACTIVE, Salicylates < 1.0, Acetaminophen < 10.0 L, Serum Alcohol < 10.0 Assessment/Plan Assessment: Ms. Wallace is a 36-year-old lady with a PMH significant for HTN, HLD, neuropathy and GERD, last admitted for cellulitis from a dog bite in Dec 2015 at [facility], presents with 2 days of worsening RUQ pain associated with postprandial emesis and diarrhea, concerning for biliary disease. RUQ pain with transaminitis Her abdominal pain in the setting of elevated LFTs with total bili is likely due to a biliary disease, most likely choledocholithiasis vs. cholecytitis with a component of possible alcoholic steatohepatitis. Patient has no signs of SIRS however. Ultrasound shows enlarged liver, distended gallbladder with minimal gallbladder wall thickening. Additionally, the patient reports severe pain within the region of the gallbladder. * hepaitits panel negative, TFTs WNL, LFT trending down * Recheck LFTs in the morning * GI consulted, will follow recs. Consider steroid (Maddrey's risk is 39 points) * Surgery consulted, follow recs - recommended no surgical intervention at the moment * IV hydration * Adequate pain control * Avoid hepatotoxins Hypokalemia K on admisison is low at 3.0. * Replete and recheck BEP tomorrow morning HTN * Resume Norvasc, HCTZ and atenolol at home doses HLD * Resume statin at home dose GERD * Resume omeprazole Diet - full liquid Moderate pain pathway DVTppx - Lovenox Full code. Problem List: 1. Abdominal pain Pain Ratin Pain Location: RLQ, RUQ, hypogaster, LLQ abdominal pain Pain Goal: Pain 7 or less Pain Plan: dilaudid, toradol Tomorrow's Labs & Rationales: CBC (leukocytosis), BEP and LFT (elevated liver enzymes) JUSTIN FINN MD 12/07/16 6045: Attending MD Review Statement Attending Statement Attending MD Statement: examined this patient, discuss w/resident/PA/BELT SANDER, agreed w/resident/PA/BELT SANDER, reviewed EMR data (avail), discussed with nursing, reviewed images, amended to note Attending Assessment/Plan: The patient was seen and discussed with house staff. Hepatobiliary scan shows no cystic duct or CBD obstruction. Suspect patient passed a small amount of sludge via CBC. LFT's improved. Will advance diet and give po narcotics for pain and observe. Follow-up LFT's in morning.
[2016-12-07 07:46] LABS: ABSOLUTE EOSINOPHIL COUNT 0.2 /CUMM (0.0-0.7); RED BLOOD CELL CT 4.12 /CUMM (4.20-5.40)
[2016-12-07 08:09] LABS: ABSOLUTE BASOPHIL COUNT 0.1 /CUMM (0.0-0.2); ABSOLUTE GRANULOCYTE CT 10.6 /CUMM (1.4-6.5); ABSOLUTE LYMPH COUNT 1.7 /CUMM (1.2-3.4); BASOPHIL % 0.4 % (0.0-2.0); EOSINOPHIL % 1.1 % (0-5); GRANULOCYTE % 78.6 % (42.2-75.2); MEAN CORPUSCULAR HGB CONC 33.2 G/DL (33.0-37.0); MEAN CORPUSCULAR VOLUME 102.6 FL (81.0-99.0); MEAN PLATELET VOLUME 9.6 FL (7.4-10.4); PLATELET COUNT 162 /CUMM (130-400); RBC DISTRIBUTION WIDTH 12.8 % (11.5-14.5); WHITE BLOOD CELL COUNT 13.5 /CUMM (4.8-10.8)
[2016-12-07 08:15] LABS: HEMATOCRIT 42.2 % (37-47)
[2016-12-07 10:01] LABS: PT 19.4 SEC (9.4-12.5)
--- NOTE | 2016-12-07 13:41 | NUR ---
1045: PATIENT OFF BEULAH 1330: PATIENT ARRIVED TO FLOOR. RESTING COMFORTABLY.
--- NOTE | 2016-12-07 13:50 | NUCLEAR MEDICINE REPORT ---
BILIARY TRACT IMAGING STUDY CLINICAL INDICATION: Abdominal distention. Possible common bile duct obstruction. PROCEDURE: Scintillation camera images were obtained over the abdomen for an observation of 95 minutes following the intravenous administration of 5.2 millicuries technetium 99m Choletec. FINDINGS: There is good concentration of activity in the liver by 5 minutes post injection. Biliary activity is well visualized by 10 minutes, and there is good visualization of small bowel activity by 15 minutes. The gallbladder is well visualized by 25 minutes. IMPRESSION: Normal biliary scan. Visualization of the gallbladder is evidence of a patent cystic duct and strong evidence against the diagnosis of acute cholecystitis. The common bile duct is patent. Liver function appears normal.
[2016-12-07 14:49] VITALS: BP 120/62
--- NOTE | 2016-12-07 15:41 | NUR ---
PATIENT SWITCHED TO FULL LIQUID DIET REFUSING TO PLACE ORDER WITH DIETARY, I SPOKE WITH PATIENT, TOLD HER THIS IS TO REST HER SYSTEM, STATED SHE DIDN'T CARE. I ASKED THEN YOU WON'T EAT ANYTHING? SHE SAID SHE WILL HAVE HER BRING HER SOMETHING. I SPOKE WITH DR CHAPPELL, SHE WILL SPEAK WITH PATIENT. CONTINUE TO MONITOR.
--- NOTE | 2016-12-07 18:18 | Cons- Gastroenterology ---
General Information and HPI Consulting Request Date of Consult: 12/07/16 Requested By: JUSTIN JOSEPH MD Reason for Consult: Called by the hospitalist service earlier today to evaluate abnormal liver function tests, abdominal pain, and abnormal imaging studies. Source of Information: patient, old records Exam Limitations: no limitations History of Present Illness: 36-year-old female, hypertensive, hyperlipidemia, ? diabetic (HgA1C 6.6 on 01/17), with neuropathy of unknown etiology (on BERT), morbid obesity, anxiety, claustrophonia, history of GERD since 1999, last admitted to for dog bites & cellulitis of left hand. The patient has had intermittent diarrhea since then, and had been on multiple antibiotics (Unasyn, Augmentin, Keflex). She has occasional scant rectal bleeding after defecation of loose greenish-brown stools, without any spontaneous lower GI bleeding or melena. The patient presented to the [facility] 12/06/2016 at 11:45 a.m., with 1 week of bloating and abdominal distention. 6 days PRESS SECRETARY, she had nausea and vomiting, contents showing bile & partially digested food, without hematemesis. 2 days PRESS SECRETARY, the patient had stabbing periumbilical pain radiating to her RUQ. She also has a separate entity of LLQ/L flank pain 2 months PRESS SECRETARY. The patient has an IUD x 10 years & is followed by [facility]. There is no history of endometriosis, STD or PID. She is on outpatient Omeprazole 20 mg daily x 3 years. She has never had a liver biopsy. There is no prior GI surgery. She has never been transfused. She denies any IVDA or tattoos. She denies any history of viral hepatitis. She is a 10 pk yr cigarette smoker. She admits to "social" alcohol intake. According to the chart, this is estimated at 1 bottle of wine Q 1-2 weeks. There is no jaundice, dark urine, light stool, or pruritus. There is a questionable history of increased abdominal girth. *There is a positive family history of colon cancer (MGF/PGF). There is no definite family history of inherited liver disease. The patient has not had previous EGD or colonoscopy. Regarding her LFTs and hyperlipidemia, she is on outpatient Simvastatin. She denies any recent new outpatient medications, herbal medications, NSAIDs or excessive Tylenol use. She denies any fevers, chills, weight loss, symptoms of UTI, hematuria, or symptoms of URI. She has chronic peripheral edema. She is scheduled for an outpatient WEB CONTENT EDITOR exam on Saturday12/10/2016. Upon arrival, BP 105/70, P 99, RR 16, T 98.5, O2 sat RA 97%. She was given IV NS, Zofran, Morphine, and Toradol in the ER. She has had numerous imaging studies. *She refused definitive studies which were advised, including MRI/MRCP , as she is claustrophobic. *According to the [facility], the patient last had normal LFTs on 2010. She has had fluctuating LFTs, predominantly elevations in her transaminases, since 08/17/2013. After the 12/07/2016: HIDA scan, the patient tolerated clears po & then had soup, fruit salad & bread uneventfully, without any nausea, vomiting, or abdominal pain. 12/06/2016: Admission labs- WBC 11.9 (81% gran/10 gran Ab), H/H 16.1/47.5, elevated MCV 101.1, PLT 162, PT 19, INR 1.82, PTT 37, glucose 115, BUN/Cr 7/0.7, GFR > 60, Na 137, K+ 3.0, HCO3 32, AG 11, amylase < 30, lipase 119, Ca2+ 8.4, albumin 3.0, globulin 4.8, TBil 2.6, DBil 1.5, alk phos 246, AST 163, ALT 55, EtOH < 10; Hep A Ab, Hep Bs Ag, Hep B core Ab, Hep C Ab- all negative; Tylenol < 10, salicylate < 1.0, serum HCG- negative, B12 > 1000, TSH 5.32. 12/06/2016: *Admission MELD- [place] 13/[facility] 17 12/07/2016: WBC 13.5 (79% gran/11 gran Ab), H/ H 14/42.2, MCV 102.6, PLT 162, Utox- OP/MS > 4000; HIV- negative, GFR > 60, K+ 3.2, Mg 1.7, PO4 3.5, albumin 2.5, globulin 4.3, TBil 1.8, DBil 1.1, alk phos 194, AST 114, ALT 48, + GGT 445, LDH 627, PT 19.4, INR 1.86, CK 55, TChol 100, TG 135, HDL 15, LDL 58, low Vit D 8.2: U/A- hazy, orange, < 1.005, 7.0, 1-3 WBC, tr ket, + icto, 30+ prot, 2.0 urobilinogen; neg nitrite, neg esterase 12/06/2016: CT ABD & PELVIS W IV CONTRAST- Hepatomegaly 29 cm and severe, heterogeneous pattern of hepatic steatosis. Patent hepatic & portal veins. No gallstones. No dilated IHD/EHD. Normal spleen & pancreas. Consider possibility of alcohol-induced steatohepatitis -- if in the right clinical context of excessive alcohol use history. Small volume of ascitic fluid is present in the abdomen and pelvis. The mild lymphadenopathy in the periportal region is likely reactive to liver disease. Multiple borderline enlarged lymph nodes are also seen within the mesentery and retroperitoneum. Normal AP. Contraceptive device is well-positioned within the endometrial cavity. The uterus and adnexa are unremarkable. 12/06/2016: US ABDOMEN (RUQ) LIMITED- This ultrasound examination is markedly limited secondary to patient's body habitus. The gallbladder is distended and there is minimal gallbladder wall thickening (5 mm). Additionally, the patient reports severe pain within the region of the gallbladder. CBD 6 mm. If there is a clinical concern for cholecystitis, nuclear medicine scan is recommended for further evaluation. The liver is markedly enlarged and heterogeneous in echotexture. 12/07/2016: HIDA SCAN- Normal biliary scan. Visualization of the gallbladder is evidence of a patent cystic duct and strong evidence against the diagnosis of acute cholecystitis. The common bile duct is patent. Liver function appears normal. (*No GB EF done). Allergies/Medications Allergies: Coded Allergies: NO KNOWN ALLERGIES (01/15/16) Home Med List: Amlodipine (Norvasc 5MG Tab) 5 MG TAB 1 TAB PO DAILY HEART (Reported) Atenolol 50 MG TAB 1 TAB PO DAILY HEART (Reported) Gabapentin 400 MG CAP 3 CAP PO DAILY NEUROPATHY (Reported) Gabapentin 400 MG CAP 2 CAP PO AT BEDTIME NEUROPATHY (Reported) Hydrochlorothiazide (Hydrodiuril 25 MG Tab) 25 MG TAB 1 TAB PO DAILY WATER PILL (Reported) Omeprazole 20 MG ECC 1 CAP PO DAILY GI (Reported) Simvastatin 20 MG TAB 1 TAB PO DAILY CHOLESTEROL (Reported) Current Medications: Current Medications Sig/Fátima Start time Last Medication Dose Route Stop Time Status Admin Amlodipine Besylate 5 MG DAILY 12/060 DC 12/06 PO 2241 Atenolol 50 MG DAILY 12/07 1000 CAN PO Atorvastatin Calcium 10 MG 1700 12/06 2130 DC PO Dextrose/Sodium 1,000 ML Q10H 12/07 0845 AC 12/07 Chloride IV 1943 Enoxaparin Sodium 40 MG DAILY 12/07 1000 AC 12/07 SC 0916 Gabapentin 1,200 MG DAILY 12/07 1000 AC 12/07 PO 0916 Gabapentin 800 MG AT BEDTIME 12/06 2200 AC 12/06 PO 2348 Hydrochlorothiazide 25 MG DAILY 12/07 1000 CAN PO Hydromorphone HCl 1 MG Q4P PRN 12/06 2245 AC 12/07 IV 1942 Hydromorphone HCl 0.5 MG Q4P PRN 12/06 2115 DC 12/06 IV 2200 Ibuprofen 600 MG Q6P PRN 12/06 213 DC PO Influenza Virus 0.5 ML ONCE ONE 12/060 DC 12/06 Vaccine IM 12/06 2201 2348 Lorazepam 1 MG Q4P PRN 12/07 0945 AC 12/07 IV 1040 Omeprazole 20 MG DAILY 12/07 1000 AC 12/07 PO 0915 Ondansetron HCl 4 MG Q8P PRN 12/06 2245 AC 12/07 PO 0917 Oxycodone HCl 5 MG Q6P PRN 12/06 2130 AC PO Patient Medication 1 ED .STK-MED ONE 12/07 1402 [facility] ED 12/07 1403 Patient Medication 1 UNIT ONE NR 12/07 0945 [facility] ED 12/07 1545 Potassium Chloride 40 MEQ ONCE ONE 12/07 0930 CAN PO 12/07 0931 Potassium Chloride 40 MEQ BID 12/06 2230 AC 12/07 PO 0916 Sodium Chloride 1,000 ML .Q10H 12/06 1900 DC 12/07 IV 0543 Tramadol HCl 50 MG Q6 PRN 12/06 2245 AC 12/07 PO 0915 Past History Travel History Traveled to [place] past 21 day No Medical History Blood Transfusion Hx: No Neurological: NEUROPATHY -- BL LE EENT: MOLD/POLLEN ALLERGIES Cardiovascular: hypertension, hyperlipidemia Respiratory: NONE Gastrointestinal: GERD Hepatic: NONE Renal: NONE Musculoskeletal: NONE Psychiatric: anxiety Endocrine: diabetes (mild elev HgbA1C), hypothyroidism (mild elev TSH), obesity, vitamin D deficiency Blood Disorders: coagulopathy (elev INR) Cancer(s): NONE WEB CONTENT EDITOR/Reproductive: irreg menses with IUD Surgical History Surgical History: none Family History Relations & Conditions If Any: FATHER (HTN/HLD). Age 62. FH: heart disease MOTHER (DM). Age 57. FH: diabetes mellitus FH: hyperlipidemia MGF, ; Cause: Colon cancer. PGF, ; Cause: Colon cancer. Relation not specified for: colon cancer Psychosocial History Where Do You Live? Home Who Do You Live With? spouse, child Services at Home: None Primary Language: [place] Smoking Status: Current Everyday Smoker ETOH Use: occasional use Illicit Drug Use: denies illicit drug use Living Will? no Power of Croze Cutter Helper/HCP? no Other Social History: . [id number] cigarette smoker. One bottle of wine Q 1-2 weeks. No illicit drug use. One son- age 17, healthy. 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 Functional Ability ADLs Independent: dressing, eating, toileting, bathing. Ambulation: independent IADLs Independent: shopping, housework, finances, food prep, telephone, transportation , medication admin. 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 Review of Systems Constitutional: Denies: chills, diaphoresis, fever, malaise, weakness, unexplained weight loss. EENTM: Denies: blurred vision, double vision, visual changes, eye pain, eye drainage, eye tearing, icterus, ear discharge, ear pain, ear redness, hearing changes, nasal congestion, epistaxis, nasal pain, throat pain, throat swelling, mouth pain, tooth pain. Cardiovascular: Reports: peripheral edema. Denies: chest pain, edema, orthopena, palpitations, syncope. Respiratory: Denies: cough, hemoptysis, orthopnea, short of breath, sputum production, stridor, wheezing. GI: Reports: abdominal pain, diarrhea, nausea (resolved). Denies: no symptoms (GERD ), bloating, constipation, distention, bowel incontinence, melena, bloody stool, changes in stool, vomiting, steatorrhea. Genitourinary: Denies: discharge, dysuria, frequency, hematuria, hesitation, nocturia, pain, urgency. Musculoskeletal: Denies: back pain, gout, joint pain, joint swelling, muscle pain, muscle stiffness, neck pain. Skin: Denies: cysts, change in skin color, change in hair/nails, dryness, erythema, jaundice, lesions, lymphangitis, lumps, moles, rash. Neurological/Psychological: Reports: anxiety, emotional problems. Denies: ataxia, cognitive dysfunction, confusion, depressed, dementia, headache, numbness, paresthesia, pre-existing deficit, petit mal seizures, tingling, tremors, tonic-clonic seizures, unable to move lower ext, unable to move upper ext, weakness. Hematologic/Endocrine: Denies: bruising, bleeding, polyuria, polydipsia. Immunologic/Allergic: Denies: splenectomy, HIV/AIDS, lymphadenopathy. All Other Systems: Reviewed and Negative Exam & Diagnostic Data Vital Signs and I&O Vital Signs Date Time Temp Pulse Resp B/P Pulse O2 O2 Flow FiO2 Ox Delivery Rate 12/07 1449 98.3 101 20 120/62 94 Room Air 12/07 0641 98.4 103 20 110/78 90 Room Air 12/069 98.6 93 19 102/62 93 Room Air 12/06 2241 96 108/78 12/06 2053 98.2 96 20 108/78 95 Room Air 12/06 2025 98.5 90 16 114/73 97 Room Air Intake & Output 12/07 1600 12/07 0400 12/06 1600 12/06 0400 12/05 1600 12/05 0400 Intake Total 8934 483 6224 Output Total 750 Balance 8177 430 5149 Intake, IV 0824 485 3034 Intake, Oral 220 400 Output, Urine 750 Patient 200 lb 200 lb Weight Physical Exam: Well-developed, well-nourished, obese female, slightly anxious & slightly tearful, in no apparent distress. Sclera anicteric. Conjunctiva pink. Oropharynx clear. No oral thrush. No aphthous ulcers. There is no adenopathy, thyromegaly, or JVD. No peripheral stigmata of inflammatory bowel disease or chronic liver disease on exam. No spiders on the anterior chest wall. No CVA tenderness. Breast & pelvic exams: deferred for upcoming outpatient WEB CONTENT EDITOR exam. Lungs: clear to A&P. Heart exam: regular rate rhythm, S1 and S2, without any murmur. Abdominal exam: normal bowel sounds, mildly distended obese belly, currently non-tender, without guarding or rebound. Negative Armendariz sign. Questionable tiny reducible umbilical hernia, otherwise no mass. Hepatomegaly with liver 25 cm by percussion, 6 FBBRCM. No splenomegaly. No fluid shift. No pulsatile mass. Digital rectal exam: deferred by patient for outpatient colonoscopy. Extremities: without cyanosis or clubbing. Trace pitting edema LE B/L. No palpable cords. No palmar erythema. No Dupuytren's contractures. Distal pulses 2+ bilaterally. DTRs 2+ bilaterally. Alert and oriented x 3. No tremor. No asterixis. Motor 5/5 B/L. A detailed exam for peripheral neuropathy was deferred (present by history). Results Pertinent Lab Results: Laboratory Tests 12/07 12/07 12/07 0845 0845 0615 Chemistry Sodium (137 - 145 mmol/L) 138 Potassium (3.5 - 5.1 mmol/L) 3.2 L Chloride (98 - 107 mmol/L) 101 Carbon Dioxide (22 - 30 mmol/L) 29 Anion Gap (5 - 16) 8 BUN (7 - 17 mg/dL) 8 Creatinine (0.5 - 1.0 mg/dL) 0.7 Estimated GFR (>60 ml/min) > 60 BUN/Creatinine Ratio (7 - 25 %) 11.4 Phosphorus (2.5 - 4.5 mg/dL) 3.5 Magnesium (1.6 - 2.3 mg/dL) 1.7 Total Bilirubin (0.2 - 1.3 mg/dL) 1.8 H Cancelled Direct Bilirubin (< 0.4 mg/dL) 1.1 H Cancelled GGT (12 - 43 U/L) 445 H AST (14 - 36 U/L) 114 H Cancelled ALT (9 - 52 U/L) 48 Cancelled Alkaline Phosphatase (<127 U/L) 194 H Cancelled Lactate Dehydrogenase (313 - 618 U/L) 627 H Creatine Kinase (30 - 135 U/L) 55 Total Protein (6.3 - 8.2 g/dL) 6.8 Cancelled Albumin (3.5 - 5.0 g/dL) 2.5 L Cancelled Triglycerides (<150 mg/dL) 135 Cholesterol (<200 MG/DL) 100 LDL Cholesterol, Calc (65 - 129 mg/dL) 58 L HDL Cholesterol (40 - 60 mg/dL) 15 L Cholesterol/HDL Ratio (0.00 - 4.23 %) 7 H 25-OH Vitamin D Total (30 - 100 ng/ml) 8.2 L Free T4 (0.79 - 2.35 ng/dL) 2.16 Cortisol AM Sample (4.46 - 22.7 ug/dL) 10.3 Coagulation PT (9.4 - 12.5 SEC) 19.4 H INR (0.90 - 1.19) 1.86 H Hematology CBC w Diff NO MAN DIFF REQ WBC (4.8 - 10.8 /CUMM) 13.5 H RBC (4.20 - 5.40 /CUMM) 4.12 L Hgb (12.0 - 16.0 G/DL) 14.0 Hct (37 - 47 %) 42.2 MCV (81.0 - 99.0 FL) 102.6 H MCH (27.0 - 31.0 PG) 34.0 H RDW (11.5 - 14.5 %) 12.8 Plt Count (130 - 400 /CUMM) 162 MPV (7.4 - 10.4 FL) 9.6 Gran % (42.2 - 75.2 %) 78.6 H Lymphocytes % (20.5 - 51.1 %) 12.9 L Monocytes % (1.7 - 9.3 %) 7.0 Eosinophils % (0 - 5 %) 1.1 Basophils % (0.0 - 2.0 %) 0.4 Absolute Granulocytes (1.4 - 6.5 /CUMM) 10.6 H Absolute Lymphocytes (1.2 - 3.4 /CUMM) 1.7 Absolute Monocytes (0.10 - 0.60 /CUMM) 1.0 H Absolute Eosinophils (0.0 - 0.7 /CUMM) 0.2 Absolute Basophils (0.0 - 0.2 /CUMM) 0.1 PUBS MCHC (33.0 - 37.0 G/DL) 33.2 Serology HIV 1&2 Ab Western Blot (NONREACTIVE) NONREACTIVE 12/07 12/06 0200 1848 Coagulation PT (9.4 - 12.5 SEC) 19.0 H INR (0.90 - 1.19) 1.82 H APTT (25 - 37 SEC) 37 Toxicology Urine Opiates Screen (>2000 NG/ML) > 4000.00 H Methadone Screen (>300 NG/ML) < 40 Barbiturate Screen (>200 NG/ML) < 60 Ur Phencyclidine Scrn (>25 NG/ML) < 6.00 Amphetamines Screen (>1000 NG/ML) < 100 U Benzodiazepines Scrn (>200 NG/ML) < 85 Urine Cocaine Screen (>300 NG/ML) < 50 Urine Cannabis Screen (>50 NG/ML) 6.40 Urines Urine Color (YEL,AMB,STR) ORANG H Urine Clarity (CLEAR) HAZY H Urine pH (5.0 - 8.0) 7.0 Ur Specific [place] (1.001 - 1.035) <= 1.005 Urine Protein (NEG,<30 MG/DL) 30 H Urine Ketones (NEG) TRACE H Urine Nitrite (NEG) NEG Urine Bilirubin (NEG) POS@ICTO H Urine Urobilinogen (0.1 - 1.0 EU/dl) 2.0 H Ur Leukocyte Esterase (NEG) NEG Ur Microscopic SEDIMENT EXAMINED Urine RBC (0 - 5 /HPF) RARE Urine WBC (0 - 2 /HPF) 1-3 H Ur Epithelial Cells (NONE,FEW) FEW Urine Crystals TALC Urine Mucus (FEW,NONE) FEW Urine Hemoglobin (NEG) NEG Urine Glucose (N MG/DL) NEG 12/06 1356 Chemistry Sodium (137 - 145 mmol/L) 137 Potassium (3.5 - 5.1 mmol/L) 3.0 L Chloride (98 - 107 mmol/L) 94 L Carbon Dioxide (22 - 30 mmol/L) 32 H Anion Gap (5 - 16) 11 BUN (7 - 17 mg/dL) 7 Creatinine (0.5 - 1.0 mg/dL) 0.7 Estimated GFR (>60 ml/min) > 60 BUN/Creatinine Ratio (7 - 25 %) 10.0 Glucose (65 - 99 mg/dL) 115 H Calcium (8.4 - 10.2 mg/dL) 8.4 Total Bilirubin (0.2 - 1.3 mg/dL) 2.6 H Direct Bilirubin (< 0.4 mg/dL) 1.5 H AST (14 - 36 U/L) 163 H ALT (9 - 52 U/L) 55 H Alkaline Phosphatase (<127 U/L) 246 H Total Protein (6.3 - 8.2 g/dL) 7.8 Albumin (3.5 - 5.0 g/dL) 3.0 L Globulin (1.9 - 4.2 gm/dL) 4.8 H Albumin/Globulin Ratio (1.1 - 2.2 %) 0.6 L Amylase (30 - 110 U/L) < 30 L Lipase (23 - 300 U/L) 119 Vitamin B12 (239 - 931 pg/mL) > 1000 H TSH (0.270 - 4.200 uIU/mL) 5.320 H Total Beta HCG (NEGATIVE) NEGATIVE Hematology CBC w Diff NO MAN DIFF REQ WBC (4.8 - 10.8 /CUMM) 11.9 H RBC (4.20 - 5.40 /CUMM) 4.69 Hgb (12.0 - 16.0 G/DL) 16.1 H Hct (37 - 47 %) 47.5 H MCV (81.0 - 99.0 FL) 101.1 H MCH (27.0 - 31.0 PG) 34.3 H RDW (11.5 - 14.5 %) 12.4 Plt Count (130 - 400 /CUMM) 167 MPV (7.4 - 10.4 FL) 9.3 Gran % (42.2 - 75.2 %) 80.9 H Lymphocytes % (20.5 - 51.1 %) 13.5 L Monocytes % (1.7 - 9.3 %) 4.9 Eosinophils % (0 - 5 %) 0.6 Basophils % (0.0 - 2.0 %) 0.1 Absolute Granulocytes (1.4 - 6.5 /CUMM) 9.7 H Absolute Lymphocytes (1.2 - 3.4 /CUMM) 1.6 Absolute Monocytes (0.10 - 0.60 /CUMM) 0.6 Absolute Eosinophils (0.0 - 0.7 /CUMM) 0.1 Absolute Basophils (0.0 - 0.2 /CUMM) 0 PUBS MCHC (33.0 - 37.0 G/DL) 33.9 Serology Hepatitis A IgM Ab (NONREACTIVE) NONREACTIVE Hep Bs Antigen (NONREACTIVE) NONREACTIVE Hep B Core IgM Ab Conf (NONREACTIVE) NONREACTIVE Hepatitis C Antibody (NONREACTIVE) NONREACTIVE Toxicology Salicylates (0 - 20.0 mg/dL) < 1.0 Acetaminophen (10.0 - 30.0 ug/mL) < 10.0 L Serum Alcohol (<10 MG/DL) < 10.0 Imaging/Other Studies: [No EKG on chart] 12/06/2016: CT ABD & PELVIS W IV CONTRAST- Hepatomegaly 29 cm and severe, heterogeneous pattern of hepatic steatosis. Patent hepatic & portal veins. No gallstones. No dilated IHD/EHD. Normal spleen & pancreas. Consider possibility of alcohol-induced steatohepatitis -- if in the right clinical context of excessive alcohol use history. Small volume of ascitic fluid is present in the abdomen and pelvis. The mild lymphadenopathy in the periportal region is likely reactive to liver disease. Multiple borderline enlarged lymph nodes are also seen within the mesentery and retroperitoneum. Normal AP. Contraceptive device is well-positioned within the endometrial cavity. The uterus and adnexa are unremarkable. 12/06/2016: US ABDOMEN (RUQ) LIMITED- This ultrasound examination is markedly limited secondary to patient's body habitus. The gallbladder is distended and there is minimal gallbladder wall thickening (5 mm). Additionally, the patient reports severe pain within the region of the gallbladder. CBD 6 mm. If there is a clinical concern for cholecystitis, nuclear medicine scan is recommended for further evaluation. The liver is markedly enlarged and heterogeneous in echotexture. 12/07/2016: HIDA SCAN- Normal biliary scan. Visualization of the gallbladder is evidence of a patent cystic duct and strong evidence against the diagnosis of acute cholecystitis. The common bile duct is patent. Liver function appears normal. (*No GB EF done). Assessment/Plan Assessment/Recommendations: 36-year-old female, hypertensive, hyperlipidemia, ? diabetic (HgA1C 6.6 on 01/17), with neuropathy of unknown etiology (on BERT), morbid obesity, anxiety, claustrophonia, history of GERD since 1999, last admitted to for dog bites & cellulitis of left hand. The patient has had intermittent diarrhea since then, and had been on multiple antibiotics (Unasyn, Augmentin, Keflex). She has occasional scant rectal bleeding after defecation of loose greenish-brown stools, without any spontaneous lower GI bleeding or melena. The patient presented to the [facility] 12/06/2016 at 11:45 a.m., with 1 week of bloating and abdominal distention. 6 days PRESS SECRETARY, she had nausea and vomiting, contents showing bile & partially digested food, without hematemesis. 2 days PRESS SECRETARY, the patient had stabbing periumbilical pain radiating to her RUQ. She also has a separate entity of LLQ/L flank pain 2 months PRESS SECRETARY. The patient has an IUD x 10 years & is followed by [facility] CONT[facility] EDITOR. There is no history of endometriosis, STD or PID. She is on outpatient Omeprazole 20 mg daily x 3 years. She has never had a liver biopsy. There is no prior GI surgery. She has never been transfused. She denies any IVDA or tattoos. She denies any history of viral hepatitis. She is a 10 pk yr cigarette smoker. She admits to "social" alcohol intake. According to the chart, this is estimated at 1 bottle of wine Q 1-2 weeks. There is no jaundice, dark urine, light stool, or pruritus. There is a questionable history of increased abdominal girth. *There is a positive family history of colon cancer (MGF/PGF). There is no definite family history of inherited liver disease. The patient has not had previous EGD or colonoscopy. Regarding her LFTs and hyperlipidemia, she is on outpatient Simvastatin. She denies any recent new outpatient medications, herbal medications, NSAIDs or excessive Tylenol use. She denies any fevers, chills, weight loss, symptoms of UTI, hematuria, or symptoms of URI. She has chronic peripheral edema. She is scheduled for an outpatient WEB CONTENT EDITOR exam on Saturday12/10/2016. Upon arrival, BP 105/70, P 99, RR 16, T 98.5, O2 sat RA 97%. She was given IV NS, Zofran, Morphine, and Toradol in the ER. She has had numerous imaging studies. *She refused definitive studies which were advised, including MRI/MRCP , as she is claustrophobic. *According to the [facility] computer, the patient last had normal LFTs on 2010. She has had fluctuating LFTs, predominantly elevations in her transaminases, since 08/17/2013. After the 12/07/2016: HIDA scan, the patient tolerated clears po & then had soup, fruit salad & bread uneventfully, without any nausea, vomiting, or abdominal pain. 12/06/2016: Admission labs- WBC 11.9 (81% gran/10 gran Ab), H/H 16.1/47.5, elevated MCV 101.1, PLT 162, PT 19, INR 1.82, PTT 37, glucose 115, BUN/Cr 7/0.7, GFR > 60, Na 137, K+ 3.0, HCO3 32, AG 11, amylase < 30, lipase 119, Ca2+ 8.4, albumin 3.0, globulin 4.8, TBil 2.6, DBil 1.5, alk phos 246, AST 163, ALT 55, EtOH < 10; Hep A Ab, Hep Bs Ag, Hep B core Ab, Hep C Ab- all negative; Tylenol < 10, salicylate < 1.0, serum HCG- negative, B12 > 1000, TSH 5.32. 12/06/2016: *Admission MELD- [place] 13/[facility] 17 12/07/2016: WBC 13.5 (79% gran/11 gran Ab), H/ H 14/42.2, MCV 102.6, PLT 162, Utox- OP/MS > 4000; HIV- negative, GFR > 60, K+ 3.2, Mg 1.7, PO4 3.5, albumin 2.5, globulin 4.3, TBil 1.8, DBil 1.1, alk phos 194, AST 114, ALT 48, + GGT 445, LDH 627, PT 19.4, INR 1.86, CK 55, TChol 100, TG 135, HDL 15, LDL 58, low Vit D 8.2: U/A- hazy, orange, < 1.005, 7.0, 1-3 WBC, tr ket, + icto, 30+ prot, 2.0 urobilinogen; neg nitrite, neg esterase 12/06/2016: CT ABD & PELVIS W IV CONTRAST- Hepatomegaly 29 cm and severe, heterogeneous pattern of hepatic steatosis. Patent hepatic & portal veins. No gallstones. No dilated IHD/EHD. Normal spleen & pancreas. Consider possibility of alcohol-induced steatohepatitis -- if in the right clinical context of excessive alcohol use history. Small volume of ascitic fluid is present in the abdomen and pelvis. The mild lymphadenopathy in the periportal region is likely reactive to liver disease. Multiple borderline enlarged lymph nodes are also seen within the mesentery and retroperitoneum. Normal AP. Contraceptive device is well-positioned within the endometrial cavity. The uterus and adnexa are unremarkable. 12/06/2016: US ABDOMEN (RUQ) LIMITED- This ultrasound examination is markedly limited secondary to patient's body habitus. The gallbladder is distended and there is minimal gallbladder wall thickening (5 mm). Additionally, the patient reports severe pain within the region of the gallbladder. CBD 6 mm. If there is a clinical concern for cholecystitis, nuclear medicine scan is recommended for further evaluation. The liver is markedly enlarged and heterogeneous in echotexture. 12/07/2016: HIDA SCAN- Normal biliary scan. Visualization of the gallbladder is evidence of a patent cystic duct and strong evidence against the diagnosis of acute cholecystitis. The common bile duct is patent. Liver function appears normal. (*No GB EF done). *At the moment, I am concerned that the patient had fatty liver there went on to steatohepatitis and perhaps cirrhosis. She has reversal of her albumin:globulin ratio, elevated INR, and low-normal platelets. She has a huge fatty liver on exam and on CT with IV contrast, without any focal hepatic defects. The scant amount of ascites does not seem tappable. The RUQ sono was somewhat limited because of the patient's body habitus, however no gallstones were seen. The HIDA scan showed patent cystic duct and patent CBD, without evidence of cholecystitis. Unfortunately, a gallbladder ejection fraction was not done. The patient's LFTs seem to have improved. She has a negative Armendariz sign on exam. It is possible she could have had biliary colic, although again no gallstones were seen on the limited ultrasound. Unfortunately, the definitive study, namely an MRCP (as well as MRI of the liver with gadolinium), could not be done, as the patient refused this due to her anxiety. I feel that the vast majority of her findings are chronic in nature. Clinically, she does not have cholangitis, nor cholecystitis. It is possible that some of the patient's abdominal symptoms could be from stretching of the liver capsule and hepatomegaly. I did mention to the patient that she most likely will need an outpatient liver biopsy. In any event, she is tolerating solids po & I feel that she can be discharged tomorrow. *Risk factor modification for fatty liver was discussed with the patient in great detail, including strict control of body weight, blood sugar, lipids, blood pressure, etc. She was also told to avoid alcohol (mild intake by history), NSAIDs, hepatotoxins, and to keep Tylenol use to a minimum. Vitamin E 800 IU daily may be beneficial. I would continue her statins for now, to help treat her hyperlipidemia & fatty liver, as her transaminase levels are at an acceptable range. SUGGEST: Low fat, 2g Na+, DM, heart healthy diet. Mobilize patient. DVT prophylaxis ( although auto A/C). Continue PPI. Antireflux measures. D/C cigarettes. Check stool for C. difficile in view of past history of antibiotics, as well as stool C&S, & Shiga toxin. Replete potassium (was on outpt diuretics). Add Vitamin E 800 IU daily. Risk factor modification for fatty liver as above. Zofran as needed. Check RBC folate with macrocytosis (normal B12 with borderline elevated TSH). Suggest IAIN, anti-smooth muscle Ab, anti-LKM Ab (rule out AIH), AMA (rule out PBC), ceruloplasmin (dobt Jesse's disease), Fe, TIBC, ferritin (doubt HHC), A1AT. Consider checking celiac panel (i.e.- IgA, tTG Ab & DGP Ab). MRCP/MRI liver with gadolinium as patient allows (still refuses). The patient was given my office number for outpatient GI follow up, regarding potential liver biopsy, baseline EGD (chronic GERD, rule out Samuel's- possibly with simultaneous small bowel biopsy), baseline colonoscopy with random biopsies (diarrhea, +FHx colon Ca), possible additional stool tests (lactoferrin, fecal elastase), H2BT, etc. 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 Assuming the patient remains stable, further inpatient GI follow up as needed. The case was discussed with Dr. Joseph earlier this evening. Problem List: 1. Abnormal LFTs 2. Fatty liver 3. Abdominal pain 4. GERD (gastroesophageal reflux disease) 5. Diarrhea 6. Macrocytosis 7. Coagulopathy 8. Family history of colon cancer Copies To: TYRONE SUMNER,EVANGELINA; TIFFANIE SUMNER,IONA; HUMA SUMNER,JUSTIN; MEGA SUMNER,VERÓNICA Consult Acknowledgment - Thank you for your consult request.
[2016-12-07 23:11] VITALS: BP 124/89
[2016-12-08 00:45] VITALS: BP 122/75
[2016-12-08 07:31] VITALS: BP 119/75
--- NOTE | 2016-12-08 08:14 | PN- Housestaff ---
CHAD SUMNER,[facility] 12/08/16 0814: Subjective Follow-up For: Abdominal pain Nausea vomiting Subjective: Patient was seen and examined this morning, she continued to complain of abdominal pain in the right upper quadrant and left lower quadrant. She also complained of abdominal distention, denied any bowel movement since morning. Patient reported that after she had HIDA scan yesterday, she started to complain of nausea and dizziness on ambulation. She also complained of bilateral lower extremity tenderness, she reported, chronic bilateral lower extremity edema and neuropathy, negative calf tenderness and negative Homans sign. Vital signs are stable except for tachycardia, no overnight events reported by the nurse or the patient. Review of Systems Constitutional: Reports: see HPI. Objective Last 24 Hrs of Vital Signs/I&O Vital Signs Date Time Temp Pulse Resp B/P Pulse O2 O2 Flow FiO2 Ox Delivery Rate 12/08 1406 97.0 98 20 124/82 96 Room Air 12/08 0731 97.1 100 20 119/75 93 Room Air 12/08 0045 107 122/75 94 Room Air 12/07 2311 96.8 112 20 124/89 94 Room Air Intake & Output 12/08 1600 12/08 0800 12/08 0000 Intake Total 8637 758 5307 Output Total 400 30 Balance 4453 073 5323 Intake, IV 800 800 800 Intake, Oral 800 120 720 Output, 30 Emesis Output, Urine 400 Physical Exam General Appearance: Alert, Oriented X3, Cooperative, No Acute Distress Skin: No Rashes, No Breakdown, No Significant Lesion HEENT: Atraumatic, PERRLA, EOMI, Mucous Membr. moist/pink Neck: Supple Cardiovascular: Regular Rate, Normal S1, Normal S2, No Murmurs Lungs: Clear to Auscultation, Normal Air Movement Abdomen: Normal Bowel Sounds, distended abdomen Tenderness over right upper quadrant and lower left quadrant regions Neurological: Normal Gait, Normal Speech, Strength at 5/5 X4 Ext, Normal Tone, Sensation Intact, Cranial Nerves 3-12 NL, Reflexes 2+ Extremities: No Clubbing, No Cyanosis, Normal Pulses, Bilateral LE edema, tender to touch, negative calf tenderness, Homans sign negative Assessment/Plan Assessment: Ms. Wallace is a 36-year-old lady with a PMH significant for HTN, HLD, neuropathy and GERD, last admitted for cellulitis from a dog bite in Dec 2015 at [facility], presents with 2 days of worsening RUQ pain associated with postprandial emesis and diarrhea, concerning for biliary disease. RUQ pain with transaminitis Her abdominal pain in the setting of elevated LFTs with total bili is likely due to a biliary disease, most likely choledocholithiasis vs. cholecytitis with a component of possible alcoholic steatohepatitis. Patient has no signs of SIRS however. Ultrasound shows enlarged liver, distended gallbladder with minimal gallbladder wall thickening. Additionally, the patient reports severe pain within the region of the gallbladder. * hepaitits panel negative, TFTs WNL, LFT trending down * LFTs trends down * GI consulted * Surgery consulted, follow recs - recommended no surgical intervention at the moment * IV hydration * Adequate pain control * Avoid hepatotoxins * Ordered IAIN, RBC folate * INR of 1.72, order oral vitamin K 10 mg once, repeat INR tomorrow morning Hypokalemia K on admisison is low at 3.0. * Replete and recheck BEP tomorrow morning HTN * Resume Norvasc, HCTZ and atenolol at home doses HLD * Resume statin at home dose GERD * Resume omeprazole Dizziness * Orthostatic measurement today Anemia * Patient has high MCV 103.2 * Normal vitamin B12 * Order folic acid Low vitamin D * Vitamin D of 8.2 * Start vitamin D 50,000 and to national unit every week Diet - full liquid Moderate pain pathway DVTppx - Lovenox Full code Problem List: 1. Abdominal pain Pain Ratin Pain Location: Abdominal pain Pain Goal: Pain 4 or less Pain Plan: Moderate pain pathway Tomorrow's Labs & Rationales: Follow up IAIN, RBC folate, and on folic acid LFT tomorrow morning NUBIA MOODY 12/08/16 1556: Attending MD Review Statement Attending Statement Attending MD Statement: examined this patient, discuss w/resident/PA/LAUNDROMAT WORKER, agreed w/resident/PA/LAUNDROMAT WORKER, reviewed EMR data (avail), discussed with nursing Attending Assessment/Plan: Patient having some nausea and dizziness this morning with ambulation. We will watch her today and see how she does, encouraged her to drink more water and asked her to get help when getting out of bed and moving around. We'll get RBC folate level and we will also IAIN level. We will repeat the INR in the morning and will give her vitamin K 10 mg by mouth today. Severe vitamin D deficiency-we started her on vitamin D supplementation 50,000 unit every week . Discussed with patient the care plan. Encouraged her to lose weight and adapt a healthy lifestyle.
[2016-12-08 08:54] LABS: ABSOLUTE BASOPHIL COUNT 0 /CUMM (0.0-0.2); ABSOLUTE EOSINOPHIL COUNT 0.2 /CUMM (0.0-0.7); ABSOLUTE GRANULOCYTE CT 6.7 /CUMM (1.4-6.5); ABSOLUTE LYMPH COUNT 1.6 /CUMM (1.2-3.4); ABSOLUTE MONOCYTE COUNT 0.7 /CUMM (0.10-0.60); BASOPHIL % 0.5 % (0.0-2.0); EOSINOPHIL % 2.7 % (0-5); MEAN CORPUSCULAR HGB 34.1 PG (27.0-31.0); MEAN CORPUSCULAR VOLUME 103.2 FL (81.0-99.0); MEAN PLATELET VOLUME 9.3 FL (7.4-10.4); PLATELET COUNT 165 /CUMM (130-400); RBC DISTRIBUTION WIDTH 12.9 % (11.5-14.5); RED BLOOD CELL CT 3.97 /CUMM (4.20-5.40); WHITE BLOOD CELL COUNT 9.3 /CUMM (4.8-10.8)
[2016-12-08 14:06] VITALS: BP 124/82
[2016-12-08 22:18] VITALS: BP 118/84
[2016-12-09 06:41] VITALS: BP 108/74
--- NOTE | 2016-12-09 08:15 | PN- Housestaff ---
See Addendum Subjective Follow-up For: Abdominal pain Nausea vomiting Subjective: patient was seen and examined today. She endoursed that her abdominal pain and nausea are improved. The dizziness is only when she moves abruptly very fast. She has been tolerating oral intake well. She wants to be discharged today. Review of Systems Constitutional: Reports: see HPI. Objective Last 24 Hrs of Vital Signs/I&O Vital Signs Date Time Temp Pulse Resp B/P Pulse O2 O2 Flow FiO2 Ox Delivery Rate 12/09 0641 98.3 101 20 108/74 92 12/08 2218 98.2 120 18 118/84 98 12/08 1406 97.0 98 20 124/82 96 Room Air Intake & Output 12/09 1600 12/09 0800 12/09 0000 Intake Total 1280 1580 Output Total Balance 1280 1580 Intake, IV 800 300 Intake, Oral 480 1280 Physical Exam General Appearance: Alert, Oriented X3, Cooperative, No Acute Distress Skin: No Rashes, No Breakdown, No Significant Lesion HEENT: Atraumatic, PERRLA, EOMI, Mucous Membr. moist/pink Neck: Supple Cardiovascular: Regular Rate, Normal S1, Normal S2, No Murmurs Lungs: Clear to Auscultation, Normal Air Movement Abdomen: Normal Bowel Sounds, Soft, No Masses, mild tenderness over RUQ and LLQ Distended abdomin Neurological: Normal Gait, Normal Speech, Strength at 5/5 X4 Ext, Normal Tone, Sensation Intact, Cranial Nerves 3-12 NL, Reflexes 2+ Extremities: No Clubbing, No Cyanosis, Normal Pulses, Bilateral trace pedal edema Assessment/Plan Assessment: Ms. Wallace is a 36-year-old lady with a PMH significant for HTN, HLD, neuropathy and GERD, last admitted for cellulitis from a dog bite in Dec 2015 at [facility], presents with 2 days of worsening RUQ pain associated with postprandial emesis and diarrhea, concerning for biliary disease. RUQ pain with transaminitis Her abdominal pain in the setting of elevated LFTs with total bili is likely due to a biliary disease, most likely choledocholithiasis vs. cholecytitis with a component of possible alcoholic steatohepatitis. Patient has no signs of SIRS however. Ultrasound shows enlarged liver, distended gallbladder with minimal gallbladder wall thickening. Additionally, the patient reports severe pain within the region of the gallbladder. * hepaitits panel negative, TFTs WNL, LFT trending down * LFTs trends down * GI consulted * Surgery consulted, follow recs - recommended no surgical intervention at the moment * Discontinue IV hydration * Adequate pain control, switch to oral * Avoid hepatotoxins * IAIN, RBC folate pending, please mention that in discharge summary * INR of 1.78 was 1.72 yesterday, patient will be given another dose of oral vitamin K 10 mg once before discharge * Patient is for discharge today * Hypokalemia K on admisison is low at 3.0. * Replete and recheck BEP tomorrow morning HTN * Continue Norvasc, HCTZ and atenolol at home doses HLD * Continue to hold statin given hepatotoxicity side effect GERD * Continue omeprazole Dizziness * Improved * Orthostatic measurement negative Anemia * Patient has high MCV 103.2 * Normal vitamin B12 * Normal folic acid Low vitamin D * Vitamin D of 8.2 * Continue vitamin D 50,000 and to national unit every week Diet - full liquid Moderate pain pathway DVTppx - Lovenox Full code Problem List: 1. Abdominal pain Pain Ratin Pain Location: Abdominal pain Pain Goal: Pain 4 or less Pain Plan: Severe pain pathway Tomorrow's Labs & Rationales: None
[2016-12-09 08:25] LABS: PT 18.6 SEC (9.4-12.5)
--- NOTE | 2016-12-09 13:37 | Patient Discharge Instructions ---
Discharge Instructions General Discharge Information Special Instructions: -Please follow-up with your primary care physician within 1 week after discharge -Please follow up with GI doctor Dr. Underwood after discharge Acute Coronary Syndrome Inclusion Criteria At DC or during hospital stay patient has or had the following: ACS DIAGNOSIS No Discharge Core Measures Meds if any: Prescribed or Continued at Discharge Meds if any: NOT Prescribed or Continued at Discharge Congestive Heart Failure Inclusion Criteria At DC or during hospital stay patient has or had the following: CHF DIAGNOSIS No Discharge Core Measures Meds if any: Prescribed or Continued at Discharge Meds if any: NOT Prescribed or Continued at Discharge Cerebrovascular accident Inclusion Criteria At DC or during hospital stay patient has or had the following: CVA/TIA Diagnosis No Discharge Core Measures Meds if any: Prescribed or Continued at Discharge Meds if any: NOT Prescribed or Continued at Discharge Venous thromboembolism Inclusion Criteria VTE Diagnosis No VTE Type NONE VTE Confirmed by (Test) NONE Discharge Core Measures - Per Current guidelines, there needs to be overlap - treatment for the first 5 days of Warfarin therapy. - If discharged on Warfarin prior to 5 days of - overlap therapy, the patient will need to be - assessed for post discharge needs including - *Post discharge parental anticoagulation - *Warfarin and/or parental anticoagulation education - *Follow up date to check INR post discharge At least 5 days overlap therapy as Inpatient Yes Meds if any: Prescribed or Continued at Discharge Note: Overlap Therapy is Warfarin and Anticoagulant Meds if any: NOT Prescribed or Continued at Discharge
[2016-12-09] MEDS ORDERED: VITAMIN E400 UNI1 PO (13:45)
[2016-12-09] MEDS ORDERED: VITAMIN D250000 UNIT PO (13:46)
--- NOTE | 2016-12-09 14:41 | NUR ---
NURSING NOTE: UNABLE TO EDIT MEDICATION TIMES ON CMR. JOSSELIN BONILLA AND CARLOZ SEGURA AWARE AND UNABLE TO FIX. PT DISCHARGED WITH MEDICATION TIMES WRITTEN AND. PT HAS A VERBAL UNDERSTANDING OF DISCHARGE INSTRUCTIONS.
--- NOTE | 2016-12-09 14:59 | PN- Att Addend ---
Attending MD Review Statement Attending Statement Attending MD Statement: examined this patient, discuss w/resident/PA/GARDEN LABOURER, agreed w/resident/PA/GARDEN LABOURER, reviewed EMR data (avail), discussed w/nursing Attending Assessment/Plan: Laboratory Tests 12/09/16 0605: Total Bilirubin 1.4 H, Direct Bilirubin 1.1 H, AST 98 H, ALT 39, Alkaline Phosphatase 137 H, Total Protein 5.9 L, Albumin 2.1 L, PT 18.6 H, INR 1.78 H Vital Signs Date Time Temp Pulse Resp B/P Pulse O2 O2 Flow FiO2 Ox Delivery Rate 12/09 0641 98.3 101 20 108/74 92 12/08 2218 98.2 120 18 118/84 98 Patient seen and examined at bedside. INR continues to stay high which is indicative of possible loss of synthetic functions of liver. Also has low albumin. Discussed with patient the care plan. Patient is in no follow-up with the gastroenterology in the clinic for further workup. Patient was made aware of the need to abstain completely from alcohol and also encouraged to close rate given the liver changes on the imaging. Her IAIN level and RBC folate level are pending and she will follow-up for those results with GI clinic. Patient is being discharged home today in stable condition and was given prescription for vitamin D and vitamin E
--- NOTE | 2016-12-11 11:24 | Discharge Summary ---
Visit Information Visit Dates Admission Date: 12/06/16 Discharge Date: 12/09/16 Hospital Course Course Attending Physician: JUSTIN FINN MD Primary Care Physician: TIFFANIE SUMNER,[facility] Course: Ms. Wallace is a 36-year-old lady with a PMH significant for HTN, HLD, a questionable diabetes (HgA1C 6.6 on 01/18/2016), with neuropathy of unknown etiology (on Gabapentin), morbid obesity, anxiety, Claustrophobia, and GERD, last admitted for cellulitis of the left hand from a dog bite in December 2015 at [facility], who presented with a week of bloating and abdominal distention and discomfort and 2 days of worsening abdominal pain associated with postprandial emesis and diarrhea. Work up in the ED revealed a hepatomegaly and elevated liver enzymes. Patient was admitted to the general medicine floor for further work up and the following were addressed during her stay. Abdominal pain and hepatomegaly Patient reported lower abdoinal pain as well as RUQ pain. She had a significantly enlarged liver extending down to right lower quadrant. In addition , she was found to have abnormal LFTs (AST:ALT>2, mild elevation in ALP), as well as elevated total and direct Irvin. RUQ Ultrasound showed enlarged liver, distended gallbladder with minimal gallbladder wall thickening, however there was limited view due to the patient's body habitus. The HIDA scan showed patent cystic duct and patent CBD, without evidence of cholecystitis. (MRCP as well as MRI of the liver with gadolinium could not be done, as the patient refused it due to her anxiety). Abdominal pain may have been precipitated by the stretching of liver's rose mary capsule as well. CBC showed macrocytosis without folate or B12 deficiency, which in conjunction with AST:ALT>2 may indicate alcoholic hepatitis, although the patient denied heavy alcohol intake. Possible other etiologies are autoimmune hepatitis or PBC. IAIN was checked and was negative. Patient was educated that she will most likely need an outpatient liver biopsy. She will follow up with Dr. Underwood in the office and also will need further work up as outpatient including: anti-smooth muscle Ab, anti-LKM Ab (rule out AIH), AMA (rule out PBC). Patient's symptoms including abdominal pain, nausea vomiting and diarrhea improved during her stay and she tolerated PO intake well. LFTs also showed steady improvement. She was discharged home after discussion of risk factor modification for fatty liver including strict control of body weight, blood sugar, lipids, and blood pressure. She was also counseled on avoiding alcohol, NSAIDs, hepatotoxins, and to keep Tylenol use to a minimum. Vitamin E 800 IU daily was started. Statins were continued as LFTs improved. Statins will also help treat her hyperlipidemia & fatty liver. Hypokalemia K on admission was low at 3.0. Repleted with K-dur, repeat K was 3.5 at discharge. HTN We continued Norvasc 5 mg daily and atenolol 50 mg daily. HLD Patient received atorvastatin 10 mg daily. GERD Patient received omeprazole 20 mg daily. Moderate pain pathway DVTppx - Lovenox Full code. Allergies: Coded Allergies: simvastatin (TOXIC TO HER LIVER 12/15/16) Significant Procedures: SERVICE DATE: 12/07/16 EXAM TYPE: NUC - HIDA SCAN BILIARY TRACT IMAGING STUDY CLINICAL INDICATION: Abdominal distention. Possible common bile duct obstruction. PROCEDURE: Scintillation camera images were obtained over the abdomen for an observation of 95 minutes following the intravenous administration of 5.2 millicuries technetium 99m Choletec. FINDINGS: There is good concentration of activity in the liver by 5 minutes post injection. Biliary activity is well visualized by 10 minutes, and there is good visualization of small bowel activity by 15 minutes. The gallbladder is well visualized by 25 minutes. IMPRESSION: Normal biliary scan. Visualization of the gallbladder is evidence of a patent cystic duct and strong evidence against the diagnosis of acute cholecystitis. The common bile duct is patent. Liver function appears normal. DICTATED BY: PETER MUKHERJEE MD DATE/TIME DICTATED:12/07/161342 BURN OUT SCARFING OPERATOR:MOLLY DATE/TIME TRANSCRIBED:12/07/161342 SERVICE DATE: 12/06/16-2592 EXAM TYPE: US - US-LIMITED ABDOMEN EXAMINATION: US ABDOMEN LIMITED CLINICAL INFORMATION: Right upper quadrant pain. Increased LFTs. Rule out cholecystitis. COMPARISON: CT abdomen pelvis dated 12/06/2016 was reviewed. TECHNIQUE: Real-time imaging of the right upper quadrant abdominal viscera. FINDINGS: PANCREAS: The pancreas is obscured by gas and cannot be adequately evaluated. LIVER: The liver is enlarged. It demonstrates increased echogenicity. GALLBLADDER: The gallbladder is distended. There is mild gallbladder wall thickening, to 5 mm. During the examination the patient reported severe pain within the region of the gallbladder. COMMON BILE DUCT: Normal in caliber measuring 0.6 cm in diameter. RIGHT KIDNEY: The right kidney measures 10 cm in sagittal dimension. No gross hydronephrosis. FREE FLUID: There is perihepatic free fluid. IMPRESSION: This ultrasound examination is markedly limited secondary to patient's body habitus. The gallbladder is distended and there is minimal gallbladder wall thickening. Additionally, the patient reports severe pain within the region of the gallbladder. If there is a clinical concern for cholecystitis, nuclear medicine scan is recommended for further evaluation. The liver is markedly enlarged and heterogeneous in echotexture. DICTATED BY: SUPA VALDEZ MD DATE/TIME DICTATED:12/06/161639 BURN OUT SCARFING OPERATOR:MOLLY DATE/TIME TRANSCRIBED:12/06/161639 SERVICE DATE: 12/06/16 EXAM TYPE: CAT - CT ABD & PELVIS W IV CONTRAST EXAMINATION: CT ABDOMEN AND PELVIS WITH CONTRAST CLINICAL INFORMATION: Right lower quadrant pain. Evaluate for appendicitis. COMPARISON: CT abdomen and pelvis from 11/15/2010 TECHNIQUE: Multidetector volumetric imaging was performed of the abdomen and pelvis before and after the IV administration of 95 mL of Optiray 320 intravenous contrast. Sagittal and coronal reformatted images were obtained on the technologist's workstation. DLP: 886 mGy-cm FINDINGS: ISSUING OPERATOR: Compared to 11/15/2010, the patient has developed a larger, more obese body habitus LUNG BASES: Mild atelectasis in dependent aspect of each lower lobe. Also, there are a few scattered linear opacities of platelike atelectasis in each base. A trace amount of fluid is present in each pleural space. LIVER, GALLBLADDER, AND BILIARY TREE: There is a heterogeneous pattern of steatosis. The liver is enlarged with right hepatic lobe measuring 29 cm in length. If patient excessively uses alcohol, then this could represent severe alcohol-induced steatohepatitis. The portal and hepatic veins are patent. Gallbladder is physiologically distended and without evidence of radiopaque calculi. There is no intrahepatic or extrahepatic bile duct dilatation. PANCREAS: Unremarkable. SPLEEN: Unremarkable. ADRENAL GLANDS: Unremarkable. KIDNEYS AND URETERS: The kidneys are normal in size, shape, and attenuation. No hydronephrosis, hydroureter, or calculi seen. No perinephric stranding. BLADDER: Unremarkable. GASTROINTESTINAL TRACT: Stomach is unremarkable. Loops of bowel are normal in caliber. The appendix is normal. There is no evidence of acute inflammation or obstruction of the gastrointestinal tract. No pneumoperitoneum. Small amount of ascitic fluid is present within the abdomen and pelvis. ABDOMINAL WALL: There is mild edema within subcutaneous tissues of the abdominal wall, flanks and back. LYMPH NODES: There are mildly enlarged common hepatic/periportal lymph nodes, largest of these measuring 1.3 cm short axis dimension. These are likely reactive to the liver disease. Multiple lymph nodes are seen within the retroperitoneum, largest measuring 1 cm short axis dimension. Also, there are multiple mildly enlarged lymph nodes in the mesentery. VASCULAR: Abdominal aorta is normal in caliber and the celiac trunk, SMA, JACOB and renal arteries are widely patent. Inferior vena cava is unremarkable. PELVIC VISCERA: Contraceptive device is well-positioned within the endometrial cavity. The uterus and adnexa are unremarkable. OSSEOUS STRUCTURES: There are bilateral pars interarticularis defects of L5 with 0.4 cm grade 1 anterolisthesis of L5 on S1. No suspicious bone lesions. IMPRESSION: Hepatomegaly and severe, heterogeneous pattern of hepatic steatosis. Consider possibility of alcohol-induced steatohepatitis -- if in the right clinical context of excessive alcohol use history. Small volume of ascitic fluid is present in the abdomen and pelvis. The mild lymphadenopathy in the periportal region is likely reactive to liver disease. Multiple borderline enlarged lymph nodes are also seen within the mesentery and retroperitoneum. DICTATED BY: BAKARI AGUILERA MD DATE/TIME DICTATED:12/06/161554 BURN OUT SCARFING OPERATOR:MOLLY DATE/TIME TRANSCRIBED:12/06/161554 Pertinent Lab Results: 12/07/16 0845: Total Bilirubin 1.8 H, Direct Bilirubin 1.1 H, AST 114 H, ALT 48, Alkaline Phosphatase 194 H, Total Protein 6.8, Albumin 2.5 L 12/07/16 0845: Total Bilirubin Cancelled, Direct Bilirubin Cancelled, AST Cancelled, ALT Cancelled, Alkaline Phosphatase Cancelled, Total Protein Cancelled, Albumin Cancelled, PT 19.4 H, INR 1.86 H 12/07/16 0615: Anion Gap 8, Estimated GFR > 60, BUN/Creatinine Ratio 11.4, Phosphorus 3.5, Magnesium 1.7, GGT 445 H, Lactate Dehydrogenase 627 H, Creatine Kinase 55, Triglycerides 135, Cholesterol 100, LDL Cholesterol, Calc 58 L, HDL Cholesterol 15 L, Cholesterol/HDL Ratio 7 H, 25-OH Vitamin D Total 8.2 L, Free T4 2.16, Cortisol AM Sample 10.3, CBC w Diff NO MAN DIFF REQ, RBC 4.12 L, MCV 102.6 H, MCH 34.0 H, RDW 12.8, MPV 9.6, Gran % 78.6 H, Lymphocytes % 12.9 L, Monocytes % 7.0, Eosinophils % 1.1, Basophils % 0.4, Absolute Granulocytes 10.6 H, Absolute Lymphocytes 1.7, Absolute Monocytes 1.0 H, Absolute Eosinophils 0.2, Absolute Basophils 0.1, PUBS MCHC 33.2, HIV 1&2 Ab Western Blot NONREACTIVE 12/07/16 0200: Urine Opiates Screen > 4000.00 H, Methadone Screen < 40, Barbiturate Screen < 60, Ur Phencyclidine Scrn < 6.00, Amphetamines Screen < 100, U Benzodiazepines Scrn < 85, Urine Cocaine Screen < 50, Urine Cannabis Screen 6.40, Urine Color ORANG H, Urine Clarity HAZY H, Urine pH 7.0, Ur Specific Dixon <= 1.005, Urine Protein 30 H, Urine Ketones TRACE H, Urine Nitrite NEG, Urine Bilirubin POS@ICTO H, Urine Urobilinogen 2.0 H, Ur Leukocyte Esterase NEG, Ur Microscopic SEDIMENT EXAMINED, Urine RBC RARE, Urine WBC 1-3 H, Ur Epithelial Cells FEW, Urine Crystals TALC, Urine Mucus FEW, Urine Hemoglobin NEG, Urine Glucose NEG 12/06/16 1848: PT 19.0 H, INR 1.82 H, APTT 37 12/06/16 1356: Anion Gap 11, Estimated GFR > 60, BUN/Creatinine Ratio 10.0, Glucose 115 H, Calcium 8.4, Total Bilirubin 2.6 H, Direct Bilirubin 1.5 H, AST 163 H, ALT 55 H, Alkaline Phosphatase 246 H, Total Protein 7.8, Albumin 3.0 L, Globulin 4.8 H, Albumin/Globulin Ratio 0.6 L, Amylase < 30 L, Lipase 119, Vitamin B12 > 1000 H, TSH 5.320 H, Total Beta HCG NEGATIVE, CBC w Diff NO MAN DIFF REQ, RBC 4.69, MCV 101.1 H, MCH 34.3 H, RDW 12.4, MPV 9.3, Gran % 80.9 H, Lymphocytes % 13.5 L, Monocytes % 4.9, Eosinophils % 0.6, Basophils % 0.1, Absolute Granulocytes 9.7 H, Absolute Lymphocytes 1.6, Absolute Monocytes 0.6, Absolute Eosinophils 0.1, Absolute Basophils 0, PUBS MCHC 33.9, Hepatitis A IgM Ab NONREACTIVE, Hep Bs Antigen NONREACTIVE, Hep B Core IgM Ab Conf NONREACTIVE, Hepatitis C Antibody NONREACTIVE, Salicylates < 1.0, Acetaminophen < 10.0 L, Serum Alcohol < 10.0 Disposition Summary Disposition Principal Diagnosis: Fatty liver with steatohepatitis and possible cirrhosis Additional Diagnosis: HTN, HLD, GERD Discharge Disposition: home or self care Discharge Instructions General Discharge Information Code Status: Full Code Patient's Diet: Heart Healthy Patient's Activity: As tolerated. Follow-Up Instructions/Appts: -Please follow-up with your primary care physician within 1 week after discharge -Please follow up with GI doctor Dr. Underwood after discharge Medications at Discharge Discharge Medications: Stop taking the following medications: Simvastatin (Simvastatin) 20 MG TAB ORAL DAILY Qty = 90 Start taking the following new medications: Ergocalciferol (Vitamin D2) (Vitamin D2) 50,000 UNIT CAPSULE 50,000 International Unit ORAL EVERY SATURDAY Qty = 10 No Refills Comments: Last Taken: 12/08/16 Time: 2:30 PM Vitamin E (Dl,Tocopheryl Acet) (Vitamin E) 400 UNIT CAPSULE 800 International Unit ORAL DAILY Qty = 60 No Refills Comments: Last Taken: 12/09/16 Time: 9:00 AM Copies To: HERBERT SUMNER,HCELLE [place]; TIFFANIE SUMNER,IONA Attending MD Review Statement Documenting Attending: JUSTIN FINN MD Other Findings: The patient was seen and agree with the plan of care upon discharge. Amlodipine (Norvasc 5MG Tab) 5 MG TAB 1 Tablet ORAL DAILY Qty = 90 Comments: Last Taken:01/29/16 Time:9:40 AM Omeprazole (Omeprazole) 20 MG ECC 1 Capsule ORAL DAILY Comments: Last Taken:01/29/16 Time:6:30 AM Start taking the following new medications: Ergocalciferol (Vitamin D2) (Vitamin D2) 50,000 UNIT CAPSULE 50,000 International Unit ORAL EVERY SATURDAY Qty = 10 No Refills Comments: Last Taken: 12/08/16 Time: 2:30 PM Vitamin E (Dl,Tocopheryl Acet) (Vitamin E) 400 UNIT CAPSULE 800 International Unit ORAL DAILY Qty = 60 No Refills Comments: Last Taken: 12/09/16 Time: 9:00 AM Copies To: HERBERT SUMNER,CHELLE [place]; TIFFANIE SUMNER,IONA Attending Review Statement Documenting Attending: JUSTIN FINN MD Time: 9:00 AM
== END 2016-12-09 14:50 ==
LOC: ERH 11:45 → ENPENDDIS 18:52 → ERHI 18:52 → 2NB 18:52
PROVIDERS: Emergency Medicine; Internal Medicine; Ophthalmology; Student in an Organized Health Care Education/Training Program; ADMIT Student in an Organized Health Care Education/Training Program
DX: K80.50 Calculus of bile duct without cholangitis or cholecystitis without obstruction (principal); E11.42 Type 2 diabetes mellitus with diabetic polyneuropathy; K76.0 Fatty (change of) liver, not elsewhere classified; E66.01 Morbid (severe) obesity due to excess calories; F17.210 Nicotine dependence, cigarettes, uncomplicated; Z68.34 Body mass index [BMI] 34.0-34.9, adult; K21.9 Gastro-esophageal reflux disease without esophagitis; I10 Essential (primary) hypertension; E78.5 Hyperlipidemia, unspecified; E87.6 Hypokalemia; D64.9 Anemia, unspecified; E55.9 Vitamin D deficiency, unspecified
CPT/HCPCS: 2NBSP; 36415; 74177; 78226; 80307; 81001; 82436; 87389; 96374; 96375; 99291; A9537; G0480; J1650; J1885; J2405; J3101; J7042; Q2036

== ENCOUNTER 2016-12-15 09:12 | Emergency (ER) | payer OTHER ==
[~2016-12-15] VITALS: Ht 157.5 cm; Wt 90.7 kg
[~2016-12-15 09:12] MED LIST changes: +VITAMIN D250000 UNIT PO; +VITAMIN E400 UNI1 PO
--- NOTE | 2016-12-15 09:40 | ED GI/GU/ABDOMINAL COMPLAINT ---
History of Present Illness General Chief Complaint: General Adult Stated Complaint: ABD PAIN,LEG PAIN, V/D, LOW GRADE FEVER Source: patient, old records Exam Limitations: no limitations Allergies Coded Allergies: simvastatin (TOXIC TO HER LIVER 12/15/16) Reconcile Medications Amlodipine Besylate (Norvasc) 5 MG TABLET 1 TAB PO DAILY HEART (Reported) Atenolol 50 MG TABLET 1 TAB PO DAILY HEART (Reported) Ergocalciferol (Vitamin D2) (Vitamin D2) 50,000 UNIT CAPSULE 50,000 IU PO QSAT BONE STRENGTH Ergocalciferol (Vitamin D2) (Vitamin D2) 50,000 UNIT CAPSULE 1 CAP PO QW liver health Gabapentin 400 MG CAPSULE 3 CAP PO DAILY NEUROPATHY (Reported) Gabapentin 400 MG CAPSULE 2 CAP PO QPM NEUROPATHY (Reported) Hydrochlorothiazide 25 MG TABLET 1 TAB PO DAILY WATER PILL (Reported) Hydromorphone HCl (Dilaudid) 2 MG TABLET 1 TAB PO BIDP PRN pain Omeprazole 20 MG CAPSULE.DR 1 CAP PO DAILY GI (Reported) Promethazine HCl 25 MG TABLET 1 TAB PO Q6P PRN nausea Vitamin E (Dl,Tocopheryl Acet) (Vitamin E) 400 UNIT CAPSULE 800 IU PO DAILY LIVER HEALTH Vitamin E Acid Succinate (Vitamin E) 400 UNIT TABLET 800 UNIT PO DAILY LIVER Triage Note: PT STATES SHE WAS SEEN HERE LAST WEEK DISCHARGED ON SATURDAY. PT STATES SHE HAS ENLARGED LIVER AND WAS TOLD IF THE S/S BECAME WORSE TO COME BACK. PT STATES SHE HAS HAD A LOW GRADE FEVER ALL WEEK AND HAS HAD V/D SINCE SATURDAY WITH BLOOD IN BOTH. Triage Nurses Notes Reviewed? yes ? n Is pt currently ? No Onset: Gradual Duration: day(s): (5), constant Timing: recent history Quality/Severity: aching, fullness, moderate Severity Numbers: 6 Location: right lower quadrant, right upper quadrant Radiation: no radiation Activities at Onset: none Prior Abdominal Problems: similar symptoms Modifying Factors: Worsens With: palpation. Associated Symptoms: diarrhea, nausea/vomiting HPI: 36 year old female with PMH significant for HTN, HLD, a questionable diabetes with neuropathy of unknown etiology presents emergency room complaining of persistent right-sided abdominal pain nausea vomiting and diarrhea for the past 5 days. The patient was recently admitted here for elevated liver enzymes and was discharged 6 days ago. She states she was initially feeling better however the symptoms became worse. No sick contacts. She denies taking anything for her symptoms. No cough no shortness of breath. She reports a subjective fevers at home. She denies any jaundice or rashes. There are no modifying factors or associated symptoms otherwise. Patient denies alcohol use (LUIS FERNANDO ZHENG) Vital Signs & Intake/Output Vital Signs & Intake/Output Vital Signs Date Time Temp Pulse Resp B/P Pulse O2 O2 Flow FiO2 Ox Delivery Rate 12/15 1255 98.1 88 16 110/74 98 Room Air 12/15 0920 97.7 90 16 113/76 98 Room Air Past History Travel History Traveled to [place] past 21 day No Medical History Any Pertinent Medical History? 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 Age 62. FH: heart disease MOTHER (DM). Age 57. FH: diabetes mellitus FH: hyperlipidemia MGF, ; Cause: Colon cancer. PGF, ; Cause: Colon cancer. Relation not specified for: colon cancer Hx Contributory? No (LUIS FERNANDO ZHENG) Review of Systems Review of Systems Constitutional: Reports: see HPI. All Other Systems: Reviewed and Negative Comments Review of systems: See HPI, All other systems negative. Constitutional, no chills no fever, no malaise HEENT: No visual changes no sore throat no congestion Cardiovascular: No chest pain , no palpitation Skin, no rashes, no change in skin Respiratory: No dyspnea no cough no sputum GI: nausea vomiting, diarrhea, : No dysuria No hematuria, no frequency, Muscle skeletal: No joint pain, no back pain, no neck pain, Neurologic: No numbness no headache Psych: No stress Heme/endocrine: No bruising no bleeding Immunology: No lymphadenopathy (GERARD NIX,LUIS FERNANDO) Physical Exam Physical Exam General Appearance: well developed/nourished, alert, awake Gastrointestinal: soft, tenderness (R SIDED) Comments: Well-developed well-nourished person in no acute distress HEENT: Normal EENT exam; PERRL, EOMI, HEAD is atraumatic. moist mucous membranes. Neck: Supple, no lymphadenopathy, normal range of motion Back: Nontender, no CVA tenderness. Full range of motion Cardiovascular: Regular rate and rhythms no murmurs rubs or gallops, Respiratory: . No respiratory distress. Patient speaking in full complete sentences. Breath sounds clear to auscultation bilaterally: NO W/R/R Abdomen: Soft, right-sided tenderness palpation, distended, , (+) Hepatomegaly, no appreciable organomegaly. Normal bowel sounds. No rebound/guarding, No appreciable enlargement of the abdominal aorta, small ascites. Extremity: No edema, full range of motion of extremities, Neuro: Alert oriented x3, motor sensory normal,. There were no obvious focal neurologic abnormalities. Skin: No appreciable rash on exposed skin, skin is warm and dry. Psych: Mood and affect is normal, memory and judgment is normal. Core Measures ACS in differential dx? No Severe Sepsis Present: No Septic Shock Present: No (GERARD NIX,LUIS FERNANDO) Progress Differential Diagnosis: biliary colic, bowel obstruction, colon cancer, cholecystitis, diverticulitis, ascites, spont bacterial peritonitis, maligancy Diagnostic Imaging: Viewed by Me: Ultrasound. Discussed w/RAD: Ultrasound. Radiology Impression: PATIENT: KRISTAL DERAS PRESENT AGE: 36 PATIENT ACCOUNT NO: [id number] : 78 LOCATION: [facility] ORDERING PHYSICIAN: LUIS FERNANDO NIX SERVICE DATE: 12/15/16 EXAM TYPE: US - US-LIMITED ABDOMEN EXAMINATION: US ABDOMEN LIMITED CLINICAL INFORMATION: Right upper quadrant abdominal pain, nausea and vomiting.. COMPARISON: None TECHNIQUE: Real-time imaging of the right upper quadrant abdominal viscera. FINDINGS: PANCREAS: Normal. LIVER: The liver demonstrates normal size, contour and increased echogenicity. No focal lesion or intrahepatic biliary duct dilatation. There is mild ascites in the right perihepatic space. GALLBLADDER: The gallbladder is contracted with mild wall thickening measuring 0.38 cm. COMMON BILE DUCT: Normal in caliber measuring 0.5 cm in diameter. RIGHT KIDNEY: Normal. No hydronephrosis. No renal calculi or focal parenchymal lesions. The kidney measures 10.2 cm in maximum dimension. FREE FLUID: None. IMPRESSION: Echogenic liver without any visible focal lesion or intrahepatic ductal dilatation. Small amount of right perihepatic fluid collection. Contracted gallbladder with thickened gallbladder wall measuring 0.382 cm. DICTATED BY: EMIR DE LOS SANTOS MD DATE /TIME DICTATED:12/15/161220 WIDE LOAD ESCORT:MOLLY DATE/TIME TRANSCRIBED: 12/15/161220 CONFIDENTIAL, DO NOT COPY WITHOUT APPROPRIATE AUTHORIZATION. < Electronically signed in Other Vendor System> SIGNED BY: MAGALI SUMNER,EMIR 122 Initial ED EKG: none (LUIS FERNANDO ZHENG) Plan of Care: Orders Procedure Date/time Status PARTIAL THROMBOPLASTIN TIME 12/15 0956 Complete PROTHROMBIN TIME 12/15 0956 Complete BLOOD CULTURE 12/15 09 Active LIPASE 12/15 0939 Complete LACTIC ACID 12/15 0939 Complete ETHANOL 12/15 0939 Complete DIRECT BILIRUBIN 12/15 0939 Complete COMPREHENSIVE METABOLIC PANEL 12/15 09 Complete CBC WITHOUT DIFFERENTIAL 12/15 09 Complete AMYLASE 12/15 0939 Complete Laboratory Tests 12/15/16 1239: Lactic Acid Cancelled 12/15/16 1010: Anion Gap 8, Estimated GFR > 60, BUN/Creatinine Ratio 8.6, Glucose 123 H, Lactic Acid 1.2, Calcium 8.4, Total Bilirubin 1.6 H, Direct Bilirubin 0.9 H, AST 109 H, ALT 48, Alkaline Phosphatase 168 H, Total Protein 7.4, Albumin 2.7 L, Globulin 4.7 H, Albumin/Globulin Ratio 0.6 L, Amylase < 30 L, Lipase 97, PT 16.0 H, INR 1.53 H, APTT 34, CBC w Diff NO MAN DIFF REQ, RBC 4.18 L, MCV 100.6 H, MCH 33.5 H, RDW 13.4, MPV 8.8, Gran % 70.6, Lymphocytes % 17.4 L, Monocytes % 9.8 H, Eosinophils % 1.5, Basophils % 0.7, Absolute Granulocytes 7.1 H, Absolute Lymphocytes 1.7, Absolute Monocytes 1.0 H, Absolute Eosinophils 0.1, Absolute Basophils 0.1, PUBS MCHC 33.2, Serum Alcohol < 10.0 Microbiology 12/15 1004 BLOOD: Blood Culture - RECD 12/15 1000 BLOOD: Blood Culture - RECD labs ordered, pt med with dilaudid 1mg iv, zofran 4m giv, ivns, old records including prevoius ct, hida and ruq us reviewed. case d/w dr warner who agrees with plan 12/15/2016 11:05:16 AM patient reports pain has resolved with Dilaudid she has had no episodes of vomiting or diarrhea here in the department I discussed apparently all her lab results, LFTs are elevated however similar to patient's levels at discharge. Ultrasound ordered. CASE AND us reviewed with dr warner agrees with plan. the us todays findings are similar to findings reported last week, the hida scan showed no evidence of cholecsytisi, pts pain has resolved with dilaudid. she has had no episodes of v/ d here in [facility] de[facility]. phenergan resolved nausea. pt clinically otherwise appaers well, nontoxic appearing, tolerated po. i advised close f/u with pmd as well as GI dr tillman whom according to discharge paperwork pt is to f/u wit for liver biopsy. i answered all of her questions. they feel comfortable with plan cleard for dc rx for pts 2 prescriptions that she did not recieve upn discharge were provided hida: IMPRESSION: Normal biliary scan. Visualization of the gallbladder is evidence of a patent cystic duct and strong evidence against the diagnosis of acute cholecystitis. The common bile duct is patent. Liver function appears normal. ct 12/06/16: IMPRESSION: Hepatomegaly and severe, heterogeneous pattern of hepatic steatosis. Consider possibility of alcohol-induced steatohepatitis -- if in the right clinical context of excessive alcohol use history. Small volume of ascitic fluid is present in the abdomen and pelvis. The mild lymphadenopathy in the periportal region is likely reactive to liver disease. Multiple borderline enlarged lymph nodes are also seen within the mesentery and retroperitoneum. us 12/06/16 IMPRESSION: This ultrasound examination is markedly limited secondary to patient's body habitus. The gallbladder is distended and there is minimal gallbladder wall thickening. Additionally, the patient reports severe pain within the region of the gallbladder. If there is a clinical concern for cholecystitis, nuclear medicine scan is recommended for further evaluation. The liver is markedly enlarged and heterogeneous in echotexture. (LUIS FERNANDO ZHENG) Departure Departure Time of Disposition: 1245 Disposition: HOME OR SELF CARE Condition: Stable Clinical Impression Primary Impression: Transaminitis Secondary Impressions: Abdominal pain, Elevated bilirubin Referrals: HERBERT SUMNER,CHELLE MORENO MD,IONA (PCP/Family) Additional Instructions: Follow-up with mash filter cloth changer Dr. tillman on saturday. dilaudid for pain- use caution as this may make you drowsy. Phenergan for nausea. Take all your medications as prescribed, your prescriptions were sent to your pharmacy in [place]. Departure Forms: Customer Survey General Discharge Information Prescriptions: Current Visit Scripts Hydromorphone HCl (Dilaudid) 1 TAB PO BIDP PRN pain #10 TAB Promethazine HCl 1 TAB PO Q6P PRN nausea #15 TAB Ergocalciferol (Vitamin D2) (Vitamin D2) 1 CAP PO QW #4 CAP Vitamin E Acid Succinate (Vitamin E) 800 UNIT PO DAILY #60 TAB (LUIS FERNANDO ZHENG) PA/SILK SCREEN PRINTER Co-Sign Statement Statement: ED Attending supervision documentation- [] I saw and evaluated the patient. I have also reviewed all the pertinent lab results and diagnostic results. I agree with the findings and the plan of care as documented in the PA's/SILK SCREEN PRINTER's documentation. [X] I have reviewed the ED Record and agree with the PA's/SILK SCREEN PRINTER's documentation. [] Additions or exceptions (if any) to the PAs/SILK SCREEN PRINTER's note and plan are summarized below: [] (LATESHA SUMNER,HARI Lopes)
[2016-12-15 10:38] LABS: ABSOLUTE BASOPHIL COUNT 0.1 /CUMM (0.0-0.2); ABSOLUTE EOSINOPHIL COUNT 0.1 /CUMM (0.0-0.7); ABSOLUTE GRANULOCYTE CT 7.1 /CUMM (1.4-6.5); ABSOLUTE LYMPH COUNT 1.7 /CUMM (1.2-3.4); BASOPHIL % 0.7 % (0.0-2.0); EOSINOPHIL % 1.5 % (0-5); GRANULOCYTE % 70.6 % (42.2-75.2); HEMATOCRIT 42.1 % (37-47); MEAN CORPUSCULAR HGB 33.5 PG (27.0-31.0); MEAN CORPUSCULAR HGB CONC 33.2 G/DL (33.0-37.0); MEAN CORPUSCULAR VOLUME 100.6 FL (81.0-99.0); MEAN PLATELET VOLUME 8.8 FL (7.4-10.4); PLATELET COUNT 246 /CUMM (130-400); RBC DISTRIBUTION WIDTH 13.4 % (11.5-14.5); RED BLOOD CELL CT 4.18 /CUMM (4.20-5.40)
[2016-12-15 10:59] LABS: PTT 34 SEC (25-37)
--- NOTE | 2016-12-15 12:27 | ULTRASOUND REPORT ---
EXAMINATION: US ABDOMEN LIMITED CLINICAL INFORMATION: Right upper quadrant abdominal pain, nausea and vomiting.. COMPARISON: None TECHNIQUE: Real-time imaging of the right upper quadrant abdominal viscera. FINDINGS: PANCREAS: Normal. LIVER: The liver demonstrates normal size, contour and increased echogenicity. No focal lesion or intrahepatic biliary duct dilatation. There is mild ascites in the right perihepatic space. GALLBLADDER: The gallbladder is contracted with mild wall thickening measuring 0.38 cm. COMMON BILE DUCT: Normal in caliber measuring 0.5 cm in diameter. RIGHT KIDNEY: Normal. No hydronephrosis. No renal calculi or focal parenchymal lesions. The kidney measures 10.2 cm in maximum dimension. FREE FLUID: None. IMPRESSION: Echogenic liver without any visible focal lesion or intrahepatic ductal dilatation. Small amount of right perihepatic fluid collection. Contracted gallbladder with thickened gallbladder wall measuring 0.382 cm.
[2016-12-15] MEDS ORDERED: VITAMIN E400 UNI3 PO (12:50)
[2016-12-15] MEDS ORDERED: DILAUDID2 M1 PO (12:50)
[2016-12-15] MEDS ORDERED: PROMETHAZINE HC25 M3 PO (12:50)
[2016-12-15] MEDS ORDERED: VITAMIN D250000 UNIT PO (12:50)
[2016-12-15 12:55] VITALS: BP 110/74
== END 2016-12-15 12:59 ==
LOC: ERH 09:12
PROVIDERS: Physician Assistant Medical
DX: R74.0 Nonspecific elevation of levels of transaminase and lactic acid dehydrogenase [LDH] (principal); R17 Unspecified jaundice; R10.31 Right lower quadrant pain; R10.11 Right upper quadrant pain
CPT/HCPCS: 87040; 96361; 96374; 96375; G0480; J2405; J2550

== ENCOUNTER 2016-12-26 18:54 | Emergency (ER) | payer OTHER ==
[~2016-12-26] VITALS: Ht 157.5 cm; Wt 90.7 kg
[~2016-12-26 18:54] MED LIST changes: +DILAUDID2 M1 PO; +PROMETHAZINE HC25 M3 PO; +VITAMIN E400 UNI3 PO
[2016-12-26 21:04] LABS: ABSOLUTE BASOPHIL COUNT 0.1 /CUMM (0.0-0.2); ABSOLUTE EOSINOPHIL COUNT 0.2 /CUMM (0.0-0.7); ABSOLUTE GRANULOCYTE CT 10.6 /CUMM (1.4-6.5); ABSOLUTE LYMPH COUNT 2.8 /CUMM (1.2-3.4); ABSOLUTE MONOCYTE COUNT 0.8 /CUMM (0.10-0.60); BASOPHIL % 0.5 % (0.0-2.0); EOSINOPHIL % 1.5 % (0-5); GRANULOCYTE % 73.3 % (42.2-75.2); HEMATOCRIT 45.6 % (37-47); MEAN CORPUSCULAR HGB 32.5 PG (27.0-31.0); MEAN CORPUSCULAR VOLUME 98.7 FL (81.0-99.0); MEAN PLATELET VOLUME 8.6 FL (7.4-10.4); PLATELET COUNT 267 /CUMM (130-400); RBC DISTRIBUTION WIDTH 13.4 % (11.5-14.5); RED BLOOD CELL CT 4.62 /CUMM (4.20-5.40); WHITE BLOOD CELL COUNT 14.5 /CUMM (4.8-10.8)
--- NOTE | 2016-12-26 21:22 | ED GI/GU/ABDOMINAL COMPLAINT ---
History of Present Illness General Chief Complaint: Abdominal Pain/Flank Pain Stated Complaint: VOMITING BLOOD/BLOODY STOOLS Source: patient, old records Exam Limitations: no limitations Vital Signs & Intake/Output Vital Signs & Intake/Output Vital Signs Date Time Temp Pulse Resp B/P Pulse O2 O2 Flow FiO2 Ox Delivery Rate 12/27 0014 98.8 96 20 108/59 95 Room Air 12/26 2120 Room Air 12/26 2114 99.2 106 20 119/68 97 Room Air 12/26 1908 98.5 103 16 110/76 97 Room Air ED Intake and Output 12/27 0000 12/26 1200 Intake Total Output Total Balance Patient 200 lb Weight Allergies Coded Allergies: simvastatin (TOXIC TO HER LIVER 12/15/16) Triage Note: PT STATES SHE HAD A LIVER BIOPSY YESTERDAY AND SINCE SHE HAS BEEN VOMITING BLOOD AGAIN AND THE SWELLING IN HER LEGS HAS GOTTEN WORSE. PT REPORTS SHE HASN'T KEPT ANYTHING DOWN IN THE PAST 2 DAYS. Triage Nurses Notes Reviewed? yes ? N Is pt currently ? No HPI: Patient presents with worsening diffuse abdominal pain, leg swelling and worsening neuropathy to both legs. Patient was admitted in the beginning of November for hepatomegaly and elevated LFTs. Patient had a Gastroenterology Consult and Symptoms Only Had a Liver Biopsy Which Was Performed 2 Days Ago. Since the Biopsy She's Been Having Increasing Pain to Her Abdomen. The Pain Is Constant. The Pain Is 10 Out Of 10. There Is No Radiation outside of the Abdominal Area. The Pain Is Cramping in Nature. Patient Has Been Having Diarrhea since Her Admission However She Began Having Nausea and Vomiting on Week Ago and for the past 2 Days Has Had Floaters in Both Her Vomitus As Well As Her Stool. Patient Has Neuropathy but States That It Is Worsening and Now She Is Getting the Feeling like Somebody Is Pouring Lava along Both of Her Thighs Intermittently. Patient States That the Pain Is so Bad that it makes her vomit. Her legs are also swelling up more than normal. (LILIANA SUMNER,PETEY Lewis) Reconcile Medications Amlodipine Besylate (Norvasc) 5 MG TABLET 1 TAB PO DAILY HEART (Reported) Atenolol 50 MG TABLET 1 TAB PO DAILY HEART (Reported) Ergocalciferol (Vitamin D2) (Vitamin D2) 50,000 UNIT CAPSULE 50,000 IU PO QSAT BONE STRENGTH Ergocalciferol (Vitamin D2) (Vitamin D2) 50,000 UNIT CAPSULE 1 CAP PO QW liver health Gabapentin 400 MG CAPSULE 3 CAP PO DAILY NEUROPATHY (Reported) Gabapentin 400 MG CAPSULE 2 CAP PO QPM NEUROPATHY (Reported) Hydrochlorothiazide 25 MG TABLET 1 TAB PO DAILY WATER PILL (Reported) Hydromorphone HCl (Dilaudid) 2 MG TABLET 1 TAB PO BIDP PRN pain Omeprazole 20 MG CAPSULE.DR 1 CAP PO DAILY GI (Reported) Oxycodone HCl 5 MG TABLET 1-2 TAB PO TID PRN PAIN TEN...[id number] Promethazine HCl 25 MG TABLET 1 TAB PO Q6P PRN nausea Spironolactone 25 MG TABLET 1 TAB PO DAILY abdominal swelling Vitamin E (Dl,Tocopheryl Acet) (Vitamin E) 400 UNIT CAPSULE 800 IU PO DAILY LIVER HEALTH Vitamin E Acid Succinate (Vitamin E) 400 UNIT TABLET 800 UNIT PO DAILY LIVER (DREAD SUMNER,VALERIO Ash) Past History Travel History Traveled to [place] past 21 day No Medical History Any Pertinent Medical History? 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 Age 62. FH: heart disease MOTHER (DM). Age 57. FH: diabetes mellitus FH: hyperlipidemia MGF, ; Cause: Colon cancer. PGF, ; Cause: Colon cancer. Relation not specified for: colon cancer Hx Contributory? No (LILIANA SUMNER,PETEY Lewis) Review of Systems Review of Systems Constitutional: Reports: no symptoms. EENTM: Reports: no symptoms. Respiratory: Reports: no symptoms. Cardiovascular: Reports: no symptoms. GI: Reports: see HPI, abdominal pain, diarrhea, nausea, bloody stool, vomiting. Genitourinary: Reports: no symptoms. Musculoskeletal: Reports: see HPI. Skin: Reports: no symptoms. Neurological/Psychological: Reports: no symptoms. Hematologic/Endocrine: Reports: no symptoms. Immunologic/Allergic: Reports: no symptoms. All Other Systems: Reviewed and Negative (LILIANA SUMNER,PETEY Lewis) Physical Exam Physical Exam General Appearance: well developed/nourished, alert, awake, moderate distress Head: atraumatic, normal appearance Eyes: Bilateral: PERRL, EOMI, other (ANICTERIC). Ears, Nose, Throat, Mouth: hearing grossly normal, moist mucous membrane Neck: normal inspection, supple, full range of motion Respiratory: normal breath sounds, chest non-tender, no respiratory distress, lungs clear Cardiovascular: regular rate/rhythm, normal peripheral pulses Gastrointestinal: normal bowel sounds, soft, non-tender, no organomegaly Back: normal inspection, normal range of motion Extremities: normal range of motion Neurologic/Psych: no motor/sensory deficits, awake, alert, oriented x 3, normal gait, normal mood/affect Skin: intact, normal color, warm/dry Core Measures ACS in differential dx? No Severe Sepsis Present: No Septic Shock Present: No (LILIANA SUMNER,PETEY Lewis) Progress Differential Diagnosis: cholecystitis, diverticulitis, esophageal varices, gastritis, hepatitis, ischemic bowel, inflamm bowel dis, pancreatitis Plan of Care: Orders Procedure Date/time Status HUMAN BETA HCG SCREEN 12/27 2015 Complete COMPREHENSIVE METABOLIC PANEL 12/27 2015 Complete CBC WITHOUT DIFFERENTIAL 12/27 2015 Complete Current Medications Sig/Fátima Start time Last Medication Dose Stop Time Status Admin Acetaminophen 1,000 MG ONCE ONE 12/27 0030 CAN (Ofirmev) 12/27 0044 N/A 1 UNIT (No Carrier) Laboratory Tests 12/26/162053: Anion Gap 9, Estimated GFR > 60, BUN/Creatinine Ratio 8.3, Glucose 98, Calcium 9.0, Total Bilirubin 1.5 H, AST 112 H, ALT 43, Alkaline Phosphatase 164 H, Total Protein 8.5 H, Albumin 3.1 L, Globulin 5.4 H, Albumin/Globulin Ratio 0.6 L, Total Beta HCG NEGATIVE, CBC w Diff NO MAN DIFF REQ, RBC 4.62, MCV 98.7, MCH 32.5 H, RDW 13.4, MPV 8.6, Gran % 73.3, Lymphocytes % 19.3 L, Monocytes % 5.4, Eosinophils % 1.5, Basophils % 0.5, Absolute Granulocytes 10.6 H, Absolute Lymphocytes 2.8, Absolute Monocytes 0.8 H, Absolute Eosinophils 0.2, Absolute Basophils 0.1, PUBS MCHC 33.0 Diagnostic Imaging: Viewed by Me: CT Scan. Discussed w/RAD: CT Scan. Initial ED EKG: none Hand-Off Endorsed To: DREAD SUMNER,VALERIO Ash Endorsed Time: 2340 Pending: CT (LILIANA SUMNER,PETEY Lewis) Radiology Impression: ABD/PELVIC CT - STEATOHEPATITIS, SLIGHT INCREASE IN EFFUSION/ASCITIES.... NO SURGICAL ISSUE Comments: PATIENT: KRISTAL DERAS PRESENT AGE: 36 PATIENT ACCOUNT NO: [id number] : 78 LOCATION: [facility] ORDERING PHYSICIAN: PETEY FORD MD SERVICE DATE: 12/26/16 EXAM TYPE: CAT - CT ABD & PELVIS W IV CONTRAST EXAMINATION: CT ABDOMEN AND PELVIS WITH CONTRAST CLINICAL INFORMATION: Hepatomegaly. Increased pain status post liver biopsy. COMPARISON: CT scan of the abdomen and pelvis 12/06/2016, 11/15/2010. TECHNIQUE: Multidetector volumetric imaging was performed of the abdomen and pelvis before and after the IV administration of 95 mL of Optiray 320 intravenous contrast. Sagittal and coronal reformatted images were obtained on the technologist's workstation. DLP: 945.34 mGy-cm FINDINGS: LUNG BASES: A small left pleural effusion has increased in size when compared to the most recent prior examination from 12/06/2016 and there is associated subsegmental atelectasis within the left lower lobe. The right lung is clear. Trace pericardial effusion. LIVER, GALLBLADDER, AND BILIARY TREE: The liver remains diffusely enlarged and there is heterogeneous fatty infiltration of the left and right lobes of liver. Particularly, the caudal tip of the right lobe appears affected. There is increased ascites when compared to prior imaging that collects within the right upper quadrant, pelvis, and both paracolic gutters. Ascites fluid is low density with no evidence of acute intraperitoneal hemorrhage. No evidence of subcapsular hematoma status post biopsy. The appearance of the gallbladder is stable. No intrahepatic or extrahepatic biliary ductal dilatation. Portal vein is patent. PANCREAS: Unremarkable. SPLEEN: Unremarkable. ADRENAL GLANDS: Unremarkable. KIDNEYS AND URETERS: The kidneys are normal in size, shape, and attenuation. No hydronephrosis, hydroureter, or calculi seen. No perinephric stranding. BLADDER: Unremarkable. GASTROINTESTINAL TRACT: The small and large bowel are unremarkable. The appendix is unremarkable. ABDOMINAL WALL: No significant hernia is appreciated. LYMPH NODES: There are scattered prominent albeit nonspecific retroperitoneal lymph nodes that remain unchanged when compared to the previous CT scan of the abdomen and pelvis from 12/06/2016. VASCULAR: The abdominal aorta and inferior vena cava are unremarkable. PELVIC VISCERA: There is an anteverted uterus with an intrauterine device within the endometrial cavity. No worrisome adnexal mass. No abnormal perirectal or presacral inflammation. OSSEOUS STRUCTURES: There is no worrisome lytic or blastic osseous lesion. Nondisplaced bilateral L5 pars interarticularis defects noted. IMPRESSION: Heterogeneous fatty infiltration of the liver consistent with steatohepatitis remains largely unchanged when compared to the CT scan of the abdomen and pelvis from 12/06/2016. The volume of ascites has slightly increased, collecting within the right upper quadrant, pelvis, and paracolic gutters. A small left pleural effusion has also increased in size with associated subsegmental atelectasis within the left lower lobe. No evidence of subcapsular hematoma or free intraperitoneal hemorrhage status post liver biopsy. DICTATED BY: EVELIA POMPA MD DATE/TIME DICTATED:12/27/164 PRODUCER ARBORIST MANAGER:MOLLY DATE/TIME TRANSCRIBED:12/27/164 CONFIDENTIAL, DO NOT COPY WITHOUT APPROPRIATE AUTHORIZATION. <Electronically signed in Other Vendor System> SIGNED BY: EVELIA POMPA MD 12/27 0021 (DREAD SUMNER,VALERIO Ash) Departure Departure Disposition: STILL A PATIENT Condition: Stable Clinical Impression Primary Impression: Abdominal pain, unspecified site Referrals: TIFFANIE SUMNER,IONA (PCP/Family) Departure Forms: Customer Survey General Discharge Information (LILIANA SUMNER,PETEY Lewis) Departure Prescriptions: Current Visit Scripts Oxycodone HCl 1-2 TAB PO TID PRN PAIN #10 TAB TEN...[id number] Spironolactone 1 TAB PO DAILY #7 TAB Comments 12/27/16, I have seen, evaluated, examined and discussed with patient at length... 1am... pt feeling better... labs stable... ct scan with steatohepatitis, effusion/ascites... will start spironolactone 25mg... pt to follow up with dr. tillman tomorrow. Encouraged close follow up with ED/PMD/GI if not feeling better. (DREAD SUMNER,VALERIO Ash)
[2016-12-27 00:14] VITALS: BP 108/59
--- NOTE | 2016-12-27 00:21 | CT SCAN REPORT ---
EXAMINATION: CT ABDOMEN AND PELVIS WITH CONTRAST CLINICAL INFORMATION: Hepatomegaly. Increased pain status post liver biopsy. COMPARISON: CT scan of the abdomen and pelvis 12/06/2016, 11/15/2010. TECHNIQUE: Multidetector volumetric imaging was performed of the abdomen and pelvis before and after the IV administration of 95 mL of Optiray 320 intravenous contrast. Sagittal and coronal reformatted images were obtained on the technologist's workstation. DLP: 945.34 mGy-cm FINDINGS: LUNG BASES: A small left pleural effusion has increased in size when compared to the most recent prior examination from 12/06/2016 and there is associated subsegmental atelectasis within the left lower lobe. The right lung is clear. Trace pericardial effusion. LIVER, GALLBLADDER, AND BILIARY TREE: The liver remains diffusely enlarged and there is heterogeneous fatty infiltration of the left and right lobes of liver. Particularly, the caudal tip of the right lobe appears affected. There is increased ascites when compared to prior imaging that collects within the right upper quadrant, pelvis, and both paracolic gutters. Ascites fluid is low density with no evidence of acute intraperitoneal hemorrhage. No evidence of subcapsular hematoma status post biopsy. The appearance of the gallbladder is stable. No intrahepatic or extrahepatic biliary ductal dilatation. Portal vein is patent. PANCREAS: Unremarkable. SPLEEN: Unremarkable. ADRENAL GLANDS: Unremarkable. KIDNEYS AND URETERS: The kidneys are normal in size, shape, and attenuation. No hydronephrosis, hydroureter, or calculi seen. No perinephric stranding. BLADDER: Unremarkable. GASTROINTESTINAL TRACT: The small and large bowel are unremarkable. The appendix is unremarkable. ABDOMINAL WALL: No significant hernia is appreciated. LYMPH NODES: There are scattered prominent albeit nonspecific retroperitoneal lymph nodes that remain unchanged when compared to the previous CT scan of the abdomen and pelvis from 12/06/2016. VASCULAR: The abdominal aorta and inferior vena cava are unremarkable. PELVIC VISCERA: There is an anteverted uterus with an intrauterine device within the endometrial cavity. No worrisome adnexal mass. No abnormal perirectal or presacral inflammation. OSSEOUS STRUCTURES: There is no worrisome lytic or blastic osseous lesion. Nondisplaced bilateral L5 pars interarticularis defects noted. IMPRESSION: Heterogeneous fatty infiltration of the liver consistent with steatohepatitis remains largely unchanged when compared to the CT scan of the abdomen and pelvis from 12/06/2016. The volume of ascites has slightly increased, collecting within the right upper quadrant, pelvis, and paracolic gutters. A small left pleural effusion has also increased in size with associated subsegmental atelectasis within the left lower lobe. No evidence of subcapsular hematoma or free intraperitoneal hemorrhage status post liver biopsy.
[2016-12-27] MEDS ORDERED: OXYCODONE HCL5 M1 PO (01:10)
[2016-12-27] MEDS ORDERED: SPIRONOLACTONE25 M1 PO (01:13)
== END 2016-12-27 01:28 ==
LOC: ERH 18:54
PROVIDERS: Emergency Medicine
DX: R10.84 Generalized abdominal pain (principal)
CPT/HCPCS: 74177; 96374

== ENCOUNTER 2017-01-11 12:32 | Emergency (ER) | payer OTHER ==
[~2017-01-11] VITALS: Ht 157.5 cm; Wt 90.7 kg
[~2017-01-11 12:32] MED LIST changes: +OXYCODONE HCL5 M1 PO; +SPIRONOLACTONE25 M1 PO
--- NOTE | 2017-01-11 12:49 | ED GI/GU/ABDOMINAL COMPLAINT ---
History of Present Illness General Chief Complaint: Abdominal Pain/Flank Pain Stated Complaint: ABD PAIN, S/P COLONOSCOPY Source: patient Exam Limitations: no limitations Vital Signs & Intake/Output Vital Signs & Intake/Output Vital Signs Date Time Temp Pulse Resp B/P Pulse O2 O2 Flow FiO2 Ox Delivery Rate 01/11 1437 98.4 84 16 99/58 97 Room Air 01/11 1238 98.3 91 16 111/75 98 Room Air Allergies Coded Allergies: simvastatin (HEPATOTOXIC 01/11/17) Reconcile Medications Amlodipine Besylate (Norvasc) 5 MG TABLET 1 TAB PO DAILY HEART (Reported) Atenolol 50 MG TABLET 1 TAB PO DAILY HEART (Reported) Gabapentin 400 MG CAPSULE 3 CAP PO DAILY NEUROPATHY (Reported) Gabapentin 400 MG CAPSULE 2 CAP PO QPM NEUROPATHY (Reported) Hydrochlorothiazide 25 MG TABLET 1 TAB PO DAILY WATER PILL (Reported) Hydromorphone HCl (Dilaudid) 2 MG TABLET 1 TAB PO BIDP PRN PAIN Omeprazole 20 MG CAPSULE.DR 1 CAP PO DAILY GI (Reported) Ondansetron HCl (Zofran) 4 MG TABLET 1 TAB PO Q6-8P PRN NAUSEA Promethazine HCl 25 MG TABLET 1 TAB PO Q6P PRN nausea Spironolactone 50 MG TABLET 1 TAB PO DAILY DIURETIC (Reported) Vitamin B Complex & Vit C No.4 (Super B Complex) (Unknown Strength) TABLET ( Unknown Dose) PO DAILY SUPPLEMENT (Reported) Vitamin E Acid Succinate (Vitamin E) 400 UNIT TABLET 800 UNIT PO DAILY LIVER Triage Note: PT STATES SHE HAD COLONOSCOPY YESTERDAY AND ABOUT 1700 LAST NIGHT SHE HAD A SHARP PAIN SHOOTING UP HER LEFT SIDE AND STATES THE PAIN MADE HER VOMIT. PT STATES SHE DID HAVE BLOOD IN HER STOOL BUT WAS TOLD THAT SHE HAD POLIPS REMOVED AND THAT MAY BE NORMAL FOR HER. Triage Nurses Notes Reviewed? yes ? N Is pt currently ? No Onset: Abrupt Duration: better Timing: recent history Quality/Severity: severe, stabbing Severity Numbers: 8 Location: generalized abdomen Radiation: no radiation Activities at Onset: none HPI: Patient is a 36-year-old female with past medical history of hypertension, hyperlipidemia, questionable diabetes, neuropathy, morbid obesity, anxiety, claustrophobia, and GERD who presented to the emergency room approximately one month ago for abdominal pain and distention which patient had imaging of CT scan and right upper quadrant ultrasound 12-06-16 showing significant concern of hepatomegaly and gallbladder wall thickening however HIDA scan 12-07-16 was performed showing strong evidence of acute cholecystitis presents to emergency room with concerns of abdominal pain in which yesterday patient had upper endoscopy and colonoscopy performed by Dr. GODINEZ and which is noted through old records that the upper endoscopy was performed with duodenal biopsies and colonoscopy was performed with multiple biopsies and multiple snare polypectomies. Patient presents to emergency room with stating that 2 hours after the procedures she went home and had acute onset of generalized abdominal pain and periumbilical pain that radiated to her epigastric region where she's had 3 episodes of bilious emesis and patient is also had bloody bowel movements. Patient is intolerant of by mouth since symptoms began. Patient does state that the pain has improved since yesterday however still persistent nausea still persistent. Denies any fever chills chest pain shortness of breath. Patient also does state that she's had "baseline" abdominal pain and nausea due to her recent symptoms as stated above She did have a liver biopsy performed last week for concerns of hepatomegaly Past History Travel History Traveled to [place] past 21 day No Medical History Any Pertinent Medical History? see below for history Neurological: NEUROPATHY -- BL LE EENT: MOLD/POLLEN ALLERGIES Cardiovascular: hypertension, hyperlipidemia Respiratory: NONE Gastrointestinal: GERD Hepatic: NONE Renal: NONE Musculoskeletal: NONE Psychiatric: anxiety Endocrine: diabetes (mild elev HgbA1C), hypothyroidism (mild elev TSH), obesity, vitamin D deficiency Blood Disorders: coagulopathy (elev INR) Cancer(s): NONE [employer]/Reproductive: irreg menses with IUD History of MRSA: No History of VRE: No History of CDIFF: No Tetanus Vaccine: 01/15/16 Surgical History Surgical History: LIVER BIOPSY Psychosocial History Who do you live with Family Services at Home None What is your primary language Indonesian Tobacco Use: Current Daily Use Daily Tobacco Use Amount/Type: => 5 Cigarettes daily ETOH Use: occasional use Illicit Drug Use: denies illicit drug use Family History Family History, If Any: FATHER (HTN/HLD). Age 62. FH: heart disease MOTHER (DM). Age 57. FH: diabetes mellitus FH: hyperlipidemia MGF, ; Cause: Colon cancer. PGF, ; Cause: Colon cancer. Relation not specified for: colon cancer Hx Contributory? No Review of Systems Review of Systems Constitutional: Reports: no symptoms. EENTM: Reports: no symptoms. Respiratory: Reports: no symptoms. Cardiovascular: Reports: no symptoms. GI: Reports: see HPI, abdominal pain, vomiting. Genitourinary: Reports: no symptoms. Musculoskeletal: Reports: no symptoms. Skin: Reports: no symptoms. Neurological/Psychological: Reports: no symptoms. Hematologic/Endocrine: Reports: no symptoms, bleeding. Immunologic/Allergic: Reports: no symptoms. All Other Systems: Reviewed and Negative Physical Exam Physical Exam General Appearance: no apparent distress, alert, comfortable Gastrointestinal: normal bowel sounds, soft, GENERALIZED MODERATE POINT TENDERNESS NOTED TO ABDOMEN Rectal: normal inspection, heme negative stool, BROWN SPECKS NOTED NO BLOOD Comments: Well-developed well-nourished person in no acute distress HEENT: Normal EENT exam, Neck: Supple, no lymphadenopathy, normal range of motion without pain or tenderness Back: Nontender, no CVA tenderness. Cardiovascular: Regular rate and rhythms no murmurs rubs or gallops, normal JVP Respiratory: Chest nontender. No respiratory distress.breath sounds clear to auscultation bilaterally Extremity: No edema, no calf tenderness to palpation, normal and equal pulses. Neuro: Alert oriented x3, motor sensory normal, Skin: No appreciable rash on exposed skin, skin is warm and dry. Psych: Mood and affect is normal, memory and judgment is normal. Core Measures ACS in differential dx? No Severe Sepsis Present: No Septic Shock Present: No Progress Differential Diagnosis: AAA, AMI, appendicitis, biliary colic, bowel obstruction , colon cancer, cholecystitis, diverticulitis, endometritis, esophageal varices, gastritis, hepatitis, hernia, hemorrhoids, ischemic bowel, inflamm bowel dis, kidney stone, [place] tear, ovarian cyst, ovarian torsion, pancreatitis, PID/cervicitis, peptic ulcer, PUD/GERD, perforated viscous, SBO, threatened AB, UTI/pyelo, BOWEL PERFORATION Plan of Care: Orders Procedure Date/time Status HUMAN BETA HCG SCREEN 01/11 1321 Complete PARTIAL THROMBOPLASTIN TIME 01/11 1304 Complete PROTHROMBIN TIME 01/11 1304 Complete LIPASE 01/11 1304 Complete DIRECT BILIRUBIN 01/11 1304 Complete COMPREHENSIVE METABOLIC PANEL 01/11 1304 Complete CBC WITHOUT DIFFERENTIAL 01/11 1304 Complete AMYLASE 01/11 1304 Complete Laboratory Tests 01/11/17 1321: Anion Gap 9, Estimated GFR > 60, BUN/Creatinine Ratio 10.0, Glucose 150 H, Calcium 9.5, Total Bilirubin 1.3, Direct Bilirubin 0.6 H, AST 55 H, ALT 30, Alkaline Phosphatase 126, Total Protein 8.1, Albumin 3.0 L, Globulin 5.1 H, Albumin/Globulin Ratio 0.6 L, Amylase 37, Lipase 102, Total Beta HCG NEGATIVE, PT 15.4 H, INR 1.47 H, APTT 35, CBC w Diff NO MAN DIFF REQ, RBC 4.39, MCV 97.0 , MCH 32.2 H, RDW 14.0, MPV 8.4, Gran % 72.3, Lymphocytes % 17.0 L, Monocytes % 7.3, Eosinophils % 2.6, Basophils % 0.8, Absolute Granulocytes 7.9 H, Absolute Lymphocytes 1.9, Absolute Monocytes 0.8 H, Absolute Eosinophils 0.3, Absolute Basophils 0.1, PUBS MCHC 33.2 01/11/17 1305: Total Beta HCG Cancelled Patient on initial exam looks well no apparent distress No active bleeding noted at this time rectal exam shows no active bleeding brown stool noted CT scan was unremarkable blood work unremarkable no evidence of perforation Patient was able tolerate by mouth upon discharge patient looks well no apparent distress and will comply with discharge instructions and had no questions. Dr. GODINEZ was made aware of patient's emergency room visit and agrees with disposition and plan (LORNA NIX,LUIS FERNANDO) Diagnostic Imaging: Viewed by Me: CT Scan. Radiology Impression: see comments Initial ED EKG: none Comments: PATIENT: KRISTAL DERAS PRESENT AGE: 36 PATIENT ACCOUNT NO: [id number] : 78 LOCATION: [facility] ORDERING PHYSICIAN: LUIS FERNANDO NIX SERVICE DATE: 01/11/17 EXAM TYPE: CAT - CT ABD & PELVIS W/O IV CONTRAS EXAMINATION: CT ABDOMEN AND PELVIS WITHOUT CONTRAST CLINICAL INFORMATION: Severe abdominal pain following colonoscopy. COMPARISON: CT abdomen and pelvis with contrast 12/26/2016. TECHNIQUE: Multidetector volumetric imaging was performed from the superior aspect of the liver through the pubic symphysis. Sagittal and coronal reformatted images were obtained on the technologist's workstation. DLP: 595 mGy-cm FINDINGS: Limited evaluation of the solid abdominal viscera in the absence of intravenous contrast. LUNG BASES: Evaluation of the included lung bases demonstrates interval resolution of a previously identified small left-sided pleural effusion with associated left basilar compressive atelectasis. There is minimal subsegmental atelectasis within the lingula. There is a nonspecific patchy opacities within the left lung base (series 2, image 4). No pleural or pericardial effusions are identified. LIVER, GALLBLADDER, AND BILIARY TREE: The liver is again noted to be enlarged and is visualized measuring approximately 29 cm in craniocaudal dimension; previously, 27.5 cm in similar dimensions. Redemonstrated is diffuse heterogeneity of the liver parenchyma, corresponding to previously identified heterogeneous hepatic steatosis. No contour deforming liver lesions are identified. Newly identified is a small subcapsular fluid collection along the liver, measuring up to 1.7 cm in transverse diameter. The subcapsular fluid collection is simple and is visualized measuring up to 13 Hounsfield units. The gallbladder is physiologically distended without visible gallstones, gallbladder wall thickening or pericholecystic inflammatory changes. PANCREAS: Unremarkable. SPLEEN: The spleen measures approximately 13 cm in AP diameter, not significantly changed relative to the prior examination. ADRENAL GLANDS: Unremarkable. KIDNEYS AND URETERS: The kidneys are normal in size, shape and contour. No contour deforming renal lesions are identified. No renal or ureteral stones are identified and there is no hydroureteronephrosis of either kidney or renal collecting system. BLADDER: Unremarkable. GASTROINTESTINAL TRACT: Normal anatomic orientation of the stomach relative to the duodenum. Normal caliber of abdominal and pelvic bowel loops, without evidence of obstruction or ileus. Scattered colonic diverticulosis, without secondary signs of acute diverticulitis. Normal-appearing appendix within the right lower quadrant of the abdomen. No significant intraperitoneal or retroperitoneal hematoma. Interval resolution of previously identified small volume intra-abdominal ascites. On today's exam, small volume ascitic fluid is visualized within the right paracolic gutter. There is minimal stranding within the mesentery which may represent mild mesenteric edema. No organizing intra-abdominal fluid collections or free intraperitoneal air. ABDOMINAL WALL: No significant hernia is appreciated. LYMPH NODES: Redemonstrated are prominent mesenteric and retroperitoneal lymph nodes, notably within the [place] hepatis as well as within the aortocaval region. These lymph nodes do not appear significantly changed in size relative to the prior examination. No deep pelvic or inguinal adenopathy is identified. VASCULAR: Normal course and caliber of the abdominal aorta and its branching vessels, without aneurysmal dilatation. Limited evaluation for vascular patency in the absence of intravenous contrast. PELVIC VISCERA: An intrauterine device is present within the endometrial canal and appears appropriately positioned. There are hypoattenuating structures within the bilateral adnexa, which may reflect ovarian cysts. OSSEOUS STRUCTURES: No acute osseous abnormality. No visible destructive osseous lesions. Vertebral body heights and intervertebral disc spaces appear grossly preserved. Incidental note is made of bilateral pars interarticularis defect at L5. IMPRESSION: 1. No acute findings within the abdomen or pelvis. No extraluminal foci of air to suggest perforation. No intraperitoneal or retroperitoneal hematoma. 2. Hepatomegaly, with the liver visualized measuring 29 cm in craniocaudal dimension; previously, 27.5 cm. Redemonstrated is diffuse heterogeneity of the liver parenchyma, corresponding to previously identified severe hepatic steatosis. 3. Interval development of a small, simple subcapsular fluid collection along the liver, visualized measuring up to 1.7 cm in transverse diameter. 4. Interval decrease in size of previously identified small volume intra-abdominal and pelvic ascites. There is minimal residual simple ascitic fluid within the right paracolic gutter. 5. Prominent mesenteric and retroperitoneal lymph nodes, not significantly changed relative to the prior examination. 6. Interval resolution of a previously identified small left-sided pleural effusion. Minimal subsegmental atelectasis within the lingula. There is a focal airspace opacity within the left lung base which is nonspecific and could reflect atelectasis although developing infection or inflammation cannot be excluded in the appropriate clinical setting. Departure Departure Disposition: HOME OR SELF CARE Condition: Stable Clinical Impression Primary Impression: Abdominal pain Secondary Impressions: Nausea Referrals: TIFFANIE SUMNER,IONA (PCP/Family) Additional Instructions: As discussed begin a 24-hour clear liquid and bland diet to rest your bowels. Begin the prescription of Dilaudid for breakthrough pain. Begin the prescription Zofran for nausea. Follow up next week with Dr. Godinez if symptoms still continue. If symptoms worsen return to emergency room. Prescriptions waiting at [facility] pharmacy Departure Forms: Customer Survey General Discharge Information Prescriptions: Current Visit Scripts Hydromorphone HCl (Dilaudid) 1 TAB PO BIDP PRN PAIN #6 TAB Ondansetron HCl (Zofran) 1 TAB PO Q6-8P PRN NAUSEA #15 TAB
[2017-01-11] MEDS ORDERED: SPIRONOLACTONE50 M1 PO (13:16)
[2017-01-11] MEDS ORDERED: SUPER B COMPLE150 MG PO (13:16)
[2017-01-11 13:32] LABS: ABSOLUTE BASOPHIL COUNT 0.1 /CUMM (0.0-0.2); ABSOLUTE EOSINOPHIL COUNT 0.3 /CUMM (0.0-0.7); ABSOLUTE GRANULOCYTE CT 7.9 /CUMM (1.4-6.5); ABSOLUTE LYMPH COUNT 1.9 /CUMM (1.2-3.4); ABSOLUTE MONOCYTE COUNT 0.8 /CUMM (0.10-0.60); BASOPHIL % 0.8 % (0.0-2.0); EOSINOPHIL % 2.6 % (0-5); GRANULOCYTE % 72.3 % (42.2-75.2); HEMATOCRIT 42.5 % (37-47); MEAN CORPUSCULAR HGB 32.2 PG (27.0-31.0); MEAN CORPUSCULAR HGB CONC 33.2 G/DL (33.0-37.0); MEAN PLATELET VOLUME 8.4 FL (7.4-10.4); PLATELET COUNT 256 /CUMM (130-400); RED BLOOD CELL CT 4.39 /CUMM (4.20-5.40); WHITE BLOOD CELL COUNT 10.9 /CUMM (4.8-10.8)
[2017-01-11 13:44] LABS: PT 15.4 SEC (9.4-12.5); PTT 35 SEC (25-37)
[2017-01-11 14:37] VITALS: BP 99/58
--- NOTE | 2017-01-11 14:57 | CT SCAN REPORT ---
EXAMINATION: CT ABDOMEN AND PELVIS WITHOUT CONTRAST CLINICAL INFORMATION: Severe abdominal pain following colonoscopy. COMPARISON: CT abdomen and pelvis with contrast 12/26/2016. TECHNIQUE: Multidetector volumetric imaging was performed from the superior aspect of the liver through the pubic symphysis. Sagittal and coronal reformatted images were obtained on the technologist's workstation. DLP: 595 mGy-cm FINDINGS: Limited evaluation of the solid abdominal viscera in the absence of intravenous contrast. LUNG BASES: Evaluation of the included lung bases demonstrates interval resolution of a previously identified small left-sided pleural effusion with associated left basilar compressive atelectasis. There is minimal subsegmental atelectasis within the lingula. There is a nonspecific patchy opacities within the left lung base (series 2, image 4). No pleural or pericardial effusions are identified. LIVER, GALLBLADDER, AND BILIARY TREE: The liver is again noted to be enlarged and is visualized measuring approximately 29 cm in craniocaudal dimension; previously, 27.5 cm in similar dimensions. Redemonstrated is diffuse heterogeneity of the liver parenchyma, corresponding to previously identified heterogeneous hepatic steatosis. No contour deforming liver lesions are identified. Newly identified is a small subcapsular fluid collection along the liver, measuring up to 1.7 cm in transverse diameter. The subcapsular fluid collection is simple and is visualized measuring up to 13 Hounsfield units. The gallbladder is physiologically distended without visible gallstones, gallbladder wall thickening or pericholecystic inflammatory changes. PANCREAS: Unremarkable. SPLEEN: The spleen measures approximately 13 cm in AP diameter, not significantly changed relative to the prior examination. ADRENAL GLANDS: Unremarkable. KIDNEYS AND URETERS: The kidneys are normal in size, shape and contour. No contour deforming renal lesions are identified. No renal or ureteral stones are identified and there is no hydroureteronephrosis of either kidney or renal collecting system. BLADDER: Unremarkable. GASTROINTESTINAL TRACT: Normal anatomic orientation of the stomach relative to the duodenum. Normal caliber of abdominal and pelvic bowel loops, without evidence of obstruction or ileus. Scattered colonic diverticulosis, without secondary signs of acute diverticulitis. Normal-appearing appendix within the right lower quadrant of the abdomen. No significant intraperitoneal or retroperitoneal hematoma. Interval resolution of previously identified small volume intra-abdominal ascites. On today's exam, small volume ascitic fluid is visualized within the right paracolic gutter. There is minimal stranding within the mesentery which may represent mild mesenteric edema. No organizing intra-abdominal fluid collections or free intraperitoneal air. ABDOMINAL WALL: No significant hernia is appreciated. LYMPH NODES: Redemonstrated are prominent mesenteric and retroperitoneal lymph nodes, notably within the [place] hepatis as well as within the aortocaval region. These lymph nodes do not appear significantly changed in size relative to the prior examination. No deep pelvic or inguinal adenopathy is identified. VASCULAR: Normal course and caliber of the abdominal aorta and its branching vessels, without aneurysmal dilatation. Limited evaluation for vascular patency in the absence of intravenous contrast. PELVIC VISCERA: An intrauterine device is present within the endometrial canal and appears appropriately positioned. There are hypoattenuating structures within the bilateral adnexa, which may reflect ovarian cysts. OSSEOUS STRUCTURES: No acute osseous abnormality. No visible destructive osseous lesions. Vertebral body heights and intervertebral disc spaces appear grossly preserved. Incidental note is made of bilateral pars interarticularis defect at L5. IMPRESSION: 1. No acute findings within the abdomen or pelvis. No extraluminal foci of air to suggest perforation. No intraperitoneal or retroperitoneal hematoma. 2. Hepatomegaly, with the liver visualized measuring 29 cm in craniocaudal dimension; previously, 27.5 cm. Redemonstrated is diffuse heterogeneity of the liver parenchyma, corresponding to previously identified severe hepatic steatosis. 3. Interval development of a small, simple subcapsular fluid collection along the liver, visualized measuring up to 1.7 cm in transverse diameter. 4. Interval decrease in size of previously identified small volume intra-abdominal and pelvic ascites. There is minimal residual simple ascitic fluid within the right paracolic gutter. 5. Prominent mesenteric and retroperitoneal lymph nodes, not significantly changed relative to the prior examination. 6. Interval resolution of a previously identified small left-sided pleural effusion. Minimal subsegmental atelectasis within the lingula. There is a focal airspace opacity within the left lung base which is nonspecific and could reflect atelectasis although developing infection or inflammation cannot be excluded in the appropriate clinical setting.
[2017-01-11] MEDS ORDERED: DILAUDID2 M1 PO (15:10)
[2017-01-11] MEDS ORDERED: ZOFRAN4 M2 PO (15:10)
== END 2017-01-11 15:18 ==
LOC: ERH 12:32
PROVIDERS: Physician Assistant
DX: R10.84 Generalized abdominal pain (principal); R11.0 Nausea
CPT/HCPCS: 74176; 96361; 96374; 96375; J2405